=== PATIENT | male | born 1980 | race Caucasian/White ===

== ENCOUNTER 2022-10-17 08:11 | Emergency (ER) | payer BC, SELFPAY ==
[2022-10-17] VITALS (11 sets, daily range): BP systolic 139–149; BP diastolic 84–86; PULSE 89–94; RESP 16–23; TEMP 36.8; O2SAT 89–99
--- NOTE | ~2022-10-17 | CT_ITS ---
EXAMINATION: CTA chest PE protocol DATE: 10/17/2022 09:51 INDICATION: Cough and shortness of breath TECHNIQUE: Computed tomography angiography (CTA) of the chest was performed with 200 mL Omnipaque-350 intravenous contrast timed to evaluate the pulmonary arteries. Coronal maximum intensity projection 3D-reconstructions were created by the technologist. The dose-length product (DLP) was 2237.73 mGy-cm . Automated exposure control and iterative reconstruction technique were employed. COMPARISON: None. FINDINGS: There is fair opacification of the pulmonary arteries. No pulmonary embolus is identified. There are patchy airspace opacities throughout the lungs, right greater than left. No pleural effusio n or pneumothorax. No pathologically enlarged thoracic lymph nodes are identified. The heart size is normal. There is mild thoracic spondylosis. IMPRESSION: 1. No pulmonary embolus identified, sensitivity limited by fair opacification of the pulmonary arteri es. 2. Multifocal pneumonia. Reviewed, dictated and finalized at location B. ING SUPERVISOR IMPRESSION: 1. No pulmonary embolus identified, sensitivity limited by fair opacification o f the pulmonary arteries. 2. Multifocal pneumonia.
--- NOTE | 2022-10-17 08:33 | ED.GENADULT ---
HPI - General Adult General Chief complaint: Upper Respiratory Infection Stated complaint: COUGHING UP BLOOD AFTER COLD S/SX Time Seen by Provider: 10/17/22 08:14 History of Present Illness HPI narrative: 42-year-old male with history of vaping and hypertension presents to the emergency department for evaluation of hemoptysis today. Patient states over the last 2 weeks he has had cough with associated exertional shortness of breath. Patient states that he has been having a productive cough for the last week or so but had not been coughing it into his mouth until today. Patient states he had a pretty significant coughing episode this morning and coughed some blood into his mouth that he spit into a tissue. Patient had a small amount of bright red blood. Patient states that this has happened multiple times since then but does seem to be lessening in amount. Patient denies any shortness of breath at rest and denies any current chest pain. Prior history of PE or DVT. Patient is not taking any blood thinners. Related Data Home Medications Medication Instructions Recorded Confirmed lisinopril 20 1 tablet PO DAILY 10/17/22 mg-hydrochlorothiazide 12.5 mg tablet Allergies Allergy/AdvReac Type Severity Reaction Status Date / Time No Known Allergies Allergy Mild Verified 10/17/22 08:34 Review of Systems Review of Systems: CONSTITUTIONAL: Denies fever, chills, or sweats. EYES: Denies visual changes, redness, or discharge. ENT: Denies rhinorrhea, congestion, sore throat, or otalgia. CARDIOVASCULAR: Denies chest pain, palpitations, or edema. RESPIRATORY: See HPI GASTROINTESTINAL: Denies abdominal pain, nausea, vomiting, or diarrhea. GENITOURINARY: Denies dysuria or hematuria. SKIN: Denies rash or itching. MUSCULOSKELETAL: Denies back pain, joint pain, or myalgia. NEUROLOGIC: Denies headache, numbness, or weakness. Exam Narrative: APPEARANCE: Well appearing, no pain, no distress, well-nourished. HEAD: normocephalic, atraumatic. EYES: PERRLA/EOMI, conjunctivae clear. NOSE: Normal no drainage THROAT: Pharynx clear, no exudate. NECK: Supple. No adenopathy, no masses. RESPIRATORY: Airway patent, respirations nonlabored. Clear to auscultation bilaterally, no rales, rhonchi, wheezing. CARDIOVASCULAR: Regular rate and rhythm without murmurs rubs or gallops. ABDOMINAL: Soft, nontender, nondistended, normal bowel sounds MUSCULOSKELETAL: Moves all extremities. Strength/ROM intact, No edema, No calf tenderness. NEURO: Alert. Cranial nerves II through XII intact. Grossly intact SKIN: Warm, dry. Normal Color Course Course Emergency Course: patient is not tachycardic or hypoxic. Patient is resting comfortably and denies any shortness of breath. Differential diagnosis for patient's symptoms does include pulmonary embolism, pneumonia, bronchitis, bronchogenic carcinoma. CTA PE study is being ordered to rule out pulm embolism. CTA showed no evidence of pulmonary nodules but did show evidence of a pneumonia. Patient was afebrile but does have a leukocytosis of 10.1. Patient was treated with Rocephin and azithromycin in the emergency department. Patient was discharged home with Augmentin and azithromycin. Patient's influenza RSV and COVID were negative. Patient was updated on the results of the work-up and educated on reasons to return to the respiratory. All question concerns were addressed. Patient was well-appearing at time of discharge. Vital Signs Vital signs: Vital Signs Pulse Rate 90 10/17/22 08:19 Pulse Oximetry 89 L 10/17/22 08:19 Temperature 98.2 F 10/17/22 08:22 Pulse Rate 91 10/17/22 12:00 Respiratory Rate 16 10/17/22 12:00 Blood Pressure 139/86 10/17/22 12:00 Pulse Oximetry 99 10/17/22 12:00 Oxygen Delivery Room Air 10/17/22 08:22 Medical Decision Making Vital Signs Vital Signs: Vital Signs Pulse Rate 90 10/17/22 08:19 Pulse Oximetry 89 L 10/17/22 08:19 Tem
[2022-10-17 09:05] LABS: Appearance Urine Clear (Clear); Basophils Absolute Auto 0.1 K/mm3 (0.0-0.1); Basophils Percent Auto 0.5 % (0.2-1.2); Bilirubin Urine Negative (Negative); Blood Urine 1+ (Negative); Color Urine Yellow (Yellow); Eosinophils Absolute Auto 0.2 K/mm3 (0-0.3); Eosinophils Percent Auto 1.8 % (0-4.4); Glucose Urine UA Negative (Negative); Hematocrit 40.7 % (42.0-52.0); Hemoglobin 13.5 g/dL (14.0-18.0); Immature Granulocyte Absolute 0.05 K/mm3 (0.00-0.031); Immature Granulocyte Percent A 0.5 % (0-0.5); Ketones Urine Negative (Negative); Leukocyte Esterase Ur Negative LEU/UL (Negative); Lymphocytes Absolute Auto 1.41 K/mm3 (0.9-3.2); Lymphocytes Percent Auto 13.9 % (18.3-44.2); Mean Corpuscular HGB Conc 33.2 g/dl (32-36); Mean Corpuscular Hemoglobin 28.7 pg (26-34); Mean Corpuscular Volume 86.6 fl (80-100); Mean Platelet Volume 9.6 fl (7.4-10.4); Monocytes Absolute Auto 0.8 K/mm3 (0.1-0.6); Monocytes Percent Auto 8.1 % (2.6-8.5); Neutrophils Absolute Auto 7.6 K/mm3 (1.3-6.7); Neutrophils Percent Auto 75.2 % (45.5-73.1); Nitrate Urine Negative (Negative); Platelet Count Result 202 k/mm3 (150-375); Protein Urine Negative (Negative); Red Cell Distribution Width 12.7 % (11.5-14.5); Urobilinogen Urine 0.2 mg/dL (<2.0); White Blood Count 10.1 K/mm3 (4.5-10.0); pH Urine 5.5 (5.0-9.0)
[2022-10-17 09:10] LABS: INR 1.1; Prothrombin Time 14.2 Seconds (11.1-14.7)
[2022-10-17 09:12] LABS: Partial Thromboplastin Time 27.1 SECONDS (22.3-36.8)
[2022-10-17 09:15] LABS: Mucus Urine Rare /lpf; RBC Urine 0-2 /hpf (0-2); WBC Urine 0-3 /hpf
[2022-10-17 09:18] LABS: Alanine Aminotransferase 33 U/L (6-50); Albumin Level 4.3 g/dL (3.5-5.1); Alkaline Phosphatase 82 U/L (38-126); Anion Gap 4 mmol/L (8-16); Aspartate Amino Transferase 29 U/L (17-59); Bilirubin,Total 0.8 mg/dL (0.2-1.3); Blood Urea Nitrogen 17 mg/dL (9-20); Calcium 8.7 mg/dL (8.4-10.2); Carbon Dioxide 30 mmol/L (22-30); Chloride 102 mmol/L (98-107); Estimated CRCL calculation 199 ml/min; Estimated Glomerular Filt Rate > 60; Glucose 112 mg/dL (65-110); Potassium 4.2 mmol/L (3.4-5.0); Sodium 136 mmol/L (137-145)
[2022-10-17 09:20] LABS: Add Urine Microscopic? YES
[2022-10-17 09:36] LABS: Influenza A QL RT-PCR Negative (Negative); Influenza B QL RT-PCR Negative (Negative); RSV RNA, RT-PCR Negative (Negative); SARS-CoV-2 RNA PCR Negative
== END 2022-10-17 12:38 | disposition home or self-care (01) ==
PROVIDERS: Emergency Provider Emergency Medicine; PCP Family Medicine Sports Medicine
DX: J18.9 Pneumonia, unspecified organism (principal); R04.2 Hemoptysis; Z20.822 Contact with and (suspected) exposure to COVID-19; I10 Essential (primary) hypertension; F17.290 Nicotine dependence, other tobacco product, uncomplicated
CPT/HCPCS: 36415; 71275; 80053; 81001; 85025; 85610; 85730; 87637; 96365; 96367; 99284; J0456; J0696; Q9967

== ENCOUNTER 2024-05-13 08:58 | Emergency (ER) | payer OTHER, SELFPAY ==
--- NOTE | ~2024-05-13 | XR_ITS ---
EXAMINATION: XR chest 2V DATE: 05/13/2024 09:36 INDICATION: Hemoptysis. Cough. TECHNIQUE: Frontal and lateral views of the chest were obtained on 3 radiographs. COMPARISON: Chest 2 views 06/10/2009, chest CT 10/17/2022 FINDINGS: There are airspace opacities in all right lung zones, likely in the right upper lobe and ri ght middle lobe. No pleural effusion or pneumothorax. The heart size is normal. IMPRESSION: 1. Airspace opacities in right upper lobe and right middle lobe, consistent with pneumonia. Reviewed, dictated and finalized at location A. IMPRESSION: 1. Airspace opacities in right upper lobe and right middle lobe, consistent wit h pneumonia.
[2024-05-13 09:08] VITALS: BP 143/68; PULSE 74; RESP 19; TEMP 36.8; O2SAT 92
--- NOTE | 2024-05-13 09:11 | ED.URI ---
HPI - URI/Sore Throat General Chief Complaint: Upper Respiratory Infection Stated Complaint: SOB/Coughing Blood Time Seen by Provider: 05/13/24 09:23 Source: patient and RN notes reviewed Mode of arrival: ambulatory Limitations: no limitations History of Present Illness HPI Narrative: 43-year-old male presents with concern for cough, hemoptysis. Reports he has had a cough for several days and has had 3 incidence of hemoptysis. Reports he has a history of hemoptysis with pneumonia. He had pneumonia last year and had frequent hemoptysis with that. He denies any other history of problems with his sinuses. He reports fever and chills last night. He denies sore throat. Reports mild nasal congestion. He has been taking DayQuil MD elicited complaint: cough and sore throat Related Data Home Medications Medication Instructions Recorded Confirmed lisinopril 20 1 tablet PO DAILY 10/17/22 05/13/24 mg-hydrochlorothiazide 12.5 mg tablet Allergies Allergy/AdvReac Type Severity Reaction Status Date / Time No Known Allergies Allergy Mild Verified 05/13/24 09:00 Review of Systems Review of Systems: CONSTITUTIONAL: Denies malaise, sweats. Reports low-grade fever and chills EYES: Denies visual changes, redness, or discharge. ENT: Reports rhinorrhea, congestion. Denies sinus pain, otalgia and sore throat. CARDIOVASCULAR: Denies chest pain, palpitations, or edema. RESPIRATORY: Reports cough, dyspnea, hemoptysis. GASTROINTESTINAL: Denies abdominal pain, nausea, vomiting, diarrhea SKIN: Denies rash or itching. MUSCULOSKELETAL: Denies myalgia. NEUROLOGIC: Denies headache. All systems reviewed & are unremarkable except as noted in HPI and below PMFSH Comments At time of signature, agree with nursing past medical, surgical, social and family history. There is no relevant family history pertinent to the presenting complaint Exam Narrative: GENERAL: Well-appearing, well-nourished, and in no acute distress. HEAD: Normocephalic EYES: PERRLA, conjunctivae clear ENT: Nares clear. Mucous membranes moist. TM pearly robles with sharp light reflex bilaterally; no tragal tenderness. Oropharynx not erythematous without lesions. Tonsils not enlarged and without exudate, no drooling, no hoarseness, no trismus, uvula midline. NECK: Supple. No lymphadenopathy CHEST: Clear to auscultation, breath sounds equal. No wheezing, rhonchi, rales, or stridor. No respiratory distress, speaks in full sentences. HEART: Regular rate and rhythm. No murmur heard. SKIN: Warm, dry, no rash. NEURO: Alert and oriented x3. PSYCH: Normal mood and affect Course Course Emergency Course: Patient is aware of diagnosis, understands and agrees to treatment plan. Anticipatory guidance given. Patient agrees to follow-up as directed and is aware of reasons to seek care at the emergency department. Portions of this record may have been created with voice recognition software Level of Care: Express Care Visit Vital Signs Vital signs: Vital Signs Temperature 98.2 F 05/13/24 09:08 Pulse Rate 74 05/13/24 09:08 Respiratory Rate 19 05/13/24 09:08 Blood Pressure 143/68 H 05/13/24 09:08 Pulse Oximetry 92 05/13/24 09:08 Oxygen Delivery Room Air 05/13/24 09:08 Temperature 98.2 F 05/13/24 09:08 Pulse Rate 74 05/13/24 09:08 Respiratory Rate 19 05/13/24 09:08 Blood Pressure 143/68 H 05/13/24 09:08 Pulse Oximetry 92 05/13/24 09:08 Oxygen Delivery Room Air 05/13/24 09:08 Reviewed. MDM - URI/Sore Throat MDM Narrative Medical decision making narrative: Differential diagnosis considered: Suero virus, strep pharyngitis, allergic rhinitis, upper respiratory tract infection, sinusitis, rhinosinusitis, nasopharyngitis. viral pharyngitis, otitis media, otitis externa, pneumonia, bronchitis, viral cough syndrome, viral syndrome, and influenza. Exam findings show no acute concerns or changes; patient is non-toxic appearing and is in
[2024-05-13 10:00] VITALS: PULSE 76; RESP 20; O2SAT 95
== END 2024-05-13 10:00 | disposition home or self-care (01) ==
PROVIDERS: Emergency Provider Nurse Practitioner; PCP Family Medicine Sports Medicine
DX: J18.9 Pneumonia, unspecified organism (principal); I10 Essential (primary) hypertension
CPT/HCPCS: 71046; 99213; G0463

== ENCOUNTER 2024-05-14 02:59 | Inpatient (IN) | payer OTHER, SELFPAY ==
[2024-05-14] VITALS (18 sets, daily range): BP systolic 125–174; BP diastolic 61–83; PULSE 78–104; RESP 16–24; TEMP 36.6–38.2; O2SAT 88–99; BMI 47.5
--- NOTE | ~2024-05-14 | XR_ITS ---
Clinical Indication: Shortness of breath, cough PA and lateral views of the chest: Comparison: 05/13/2024 Findings: There is extensive bilateral hazy pulmonary airspace disease/consolidation, right lung wors e than left. No pleural effusions. Cardiomediastinal silhouette is within normal limits. Bones and s oft tissues are unremarkable. Impression: Extensive hazy bibasilar airspace disease/consolidation, right worse than left. Correlate for pulmona ry edema versus bilateral pneumonia. Reviewed, dictated and finalized at location M. Impression: Extensive hazy bibasilar airspace disease/consolidation, right worse than left. Correlate for pulmonary edema versus bilateral pneumonia.
--- NOTE | ~2024-05-14 | CT_ITS ---
EXAMINATION: CTA chest PE protocol DATE: 05/15/2024 09:34 INDICATION: Pneumonia presenting with worsening shortness of breath and hemoptysis. TECHNIQUE: Computed tomography (CT) pulmonary angiogram of the chest was performed with 100 mL Omnipa que-350 intravenous contrast. Additional 3D reconstructions utilizing coronal maximum intensity proje ction (MIP) were performed. Automated exposure control and iterative reconstruction technique were em ployed. The dose-length product was 2245.10 mGy-cm. COMPARISON: None FINDINGS: There is suboptimal contrast opacification of the pulmonary arteries which decreases sensitivity in t he smaller segmental and subsegmental pulmonary arteries. No evident pulmonary embolism. There are ex tensive groundglass opacities and patchy more dense consolidation throughout both lungs with bat wing configuration relatively sparing the periphery of the lungs which could represent moderate pulmonary edema or pneumonia. Calcified right lower lobe nodules consistent with old granulomatous disease. No pleural effusion. Heart size is normal. No pericardial effusion. Thoracic aorta is normal in caliber with no dissection. No pathologically enlarged thoracic lymphadenopathy. Moderate thoracic spondylos is. IMPRESSION: 1. No definitive pulmonary embolism. Sensitivity decreased in the smaller segmental and subsegmental pulmonary arteries due to suboptimal contrast opacification. 2. Extensive groundglass opacities and more dense consolidation throughout both lungs which could rep resent moderate pulmonary edema or pneumonia. Reviewed, dictated and finalized at location B. IMPRESSION: 1. No definitive pulmonary embolism. Sensitivity decreased in the smaller segme ntal and subsegmental pulmonary arteries due to suboptimal contrast opacificati on. 2. Extensive groundglass opacities and more dense consolidation throughout both lungs which could represent moderate pulmonary edema or pneumonia.
--- NOTE | ~2024-05-14 | XR_ITS ---
Portable chest x-ray Comparison: 05/16/2024 Clinical History: Decreased hemoglobin following bronchoscopy Findings: There is diffuse groundglass pulmonary disease. No pneumothorax evident. Cardiomediastina l silhouette is stable. Bones and soft tissues are unremarkable. Impression: Diffuse ground less pulmonary disease, nonspecific. Reviewed, dictated and finalized at location . Impression: Diffuse ground less pulmonary disease, nonspecific.
--- NOTE | ~2024-05-14 | XR_ITS ---
EXAMINATION: XR chest 1V portable DATE: 05/16/2024 13:06 INDICATION: Pneumonia. Post bronchoscopy. TECHNIQUE: A single frontal view of the chest was obtained on 2 radiographs. COMPARISON: Chest single view at 7:52 AM, chest CT 05/15/2024 FINDINGS: There are airspace opacities in all lung zones bilaterally. No pleural effusion or pneumoth orax. The heart size is normal. IMPRESSION: 1. Stable diffuse lung disease, most likely atypical pneumonia. Reviewed, dictated and finalized at location A.
--- NOTE | ~2024-05-14 | XR_ITS ---
Portable chest x-ray Comparison: 05/14/2024 Clinical History: Pneumonia Findings: There is diffuse hazy pulmonary disease, similar to prior exam. No pleural effusions. Car diomediastinal silhouette is stable. Bones and soft tissues are unremarkable. Impression: Stable diffuse hazy pulmonary disease. Correlate for extensive pneumonia versus pulmonary edema. Reviewed, dictated and finalized at [facility]. Impression: Stable diffuse hazy pulmonary disease. Correlate for extensive pneumonia versus pulmonary edema.
--- NOTE | ~2024-05-14 | XR_ITS ---
EXAMINATION: XR chest 1V portable DATE: 05/18/2024 08:43 INDICATION: Pneumonia TECHNIQUE: frontal view of the chest was obtained. COMPARISON: Chest radiograph dated 05/17/2024 FINDINGS: Persistent patchy ground glass opacities in the left mid and lower lung zone with some improvement in the patchy groundglass opacities in the right lung. No pleural effusion or pneumothorax. The cardiom ediastinal silhouette is normal. IMPRESSION: 1. Persistent patchy groundglass opacities in the left lower lobe with decrease in the opacity in the right lung consistent with improving pneumonia or pulmonary edema. Reviewed, dictated and finalized at location A. IMPRESSION: 1. Persistent patchy groundglass opacities in the left lower lobe with decrease in the opacity in the right lung consistent with improving pneumonia or pulmon nancy edema.
--- NOTE | ~2024-05-14 | XR_ITS ---
Portable chest x-ray Comparison: 05/18/2024 Clinical History: Pneumonia Findings: There is bibasilar mild groundglass pulmonary disease, similar to prior exam. Cardiomedia stinal silhouette is stable. Bones and soft tissues are unremarkable. Impression: Stable mild bilateral ground glass pulmonary disease, with basilar prominence. Correlate for mild pul monary edema or atypical infection. Reviewed, dictated and finalized at [facility]. Impression: Stable mild bilateral ground glass pulmonary disease, with basilar prominence. Correlate for mild pulmonary edema or atypical infection.
--- NOTE | 2024-05-14 03:07 | ECG_ITS ---
Test Date: 2024-05-14 03:19:59 Measurements Intervals [place] Rate: 87 P: 19 SC: 181 QRS: -25 QRSD: 105 T: 76 QT: 354 QTc: 427 Interpretive Statements SINUS RHYTHM BORDERLINE ST-T WAVE ABNORMALITY- HIGH LATERAL LEADS BASELINE ARTIFACT- I, II, III, AVR, AVL, AVF, V2 BORDERLINE ECG No previous ECG available for comparison Electronically Signed On 05-14-2024 06:28:10 CDT by Bobby Morton D.O.
[2024-05-14 03:22] LABS: Basophils Percent Auto 0.4 % (0.2-1.2); Eosinophils Absolute Auto 0.2 K/mm3 (0-0.3); Eosinophils Percent Auto 1.6 % (0-4.4); Hematocrit 33.9 % (42.0-52.0); Hemoglobin 11.2 g/dL (14.0-18.0); Immature Granulocyte Absolute 0.02 K/mm3 (0.00-0.031); Immature Granulocyte Percent A 0.2 % (0-0.5); Lymphocytes Absolute Auto 2.57 K/mm3 (0.9-3.2); Lymphocytes Percent Auto 26.2 % (18.3-44.2); Mean Corpuscular Hemoglobin 28.9 pg (26-34); Mean Corpuscular Volume 87.6 fl (80-100); Mean Platelet Volume 9.3 fl (7.4-10.4); Monocytes Absolute Auto 0.8 K/mm3 (0.1-0.6); Monocytes Percent Auto 8.2 % (2.6-8.5); Neutrophils Absolute Auto 6.2 K/mm3 (1.3-6.7); Neutrophils Percent Auto 63.4 % (45.5-73.1); Platelet Count Result 215 k/mm3 (150-375); Red Blood Count 3.87 M/mm3 (4.6-6.20); Red Cell Distribution Width 12.9 % (11.5-14.5); White Blood Count 9.8 K/mm3 (4.5-10.0)
--- NOTE | 2024-05-14 03:24 | ED.SOB ---
HPI - SOB/Dyspnea General Chief Complaint: Shortness of Breath/Dyspnea Stated Complaint: coughing up blood Time Seen by Provider: 05/14/24 03:08 History of Present Illness HPI Narrative: This is a 43-year-old male recently diagnosed with community-acquired pneumonia yesterday. He has been dealing with 3 days of difficulty breathing, cough productive of clear and admixed with blood tinged sputum. Endorses some chest tightness sensation but no nausea, vomiting, diaphoresis. Has a history of a pneumonia that not require any hospitalization couple years prior. No recent injuries or travel. No leg swelling, recent procedures or other DVT/PE risk factors. Was otherwise in his normal state of health. He presents today and was noted to be hypoxic in triage. He was requiring oxygen supplementation. He does wear a CPAP at home for ULISES. Related Data Home Medications Medication Instructions Recorded Confirmed lisinopril 20 1 tablet PO DAILY 10/17/22 05/13/24 mg-hydrochlorothiazide 12.5 mg tablet Allergies Allergy/AdvReac Type Severity Reaction Status Date / Time No Known Allergies Allergy Mild Verified 05/13/24 09:00 Review of Systems Review of Systems: As reviewed above in HPI Exam Narrative: GENERAL: [Well-appearing, well-nourished, and in no acute distress.] HEAD: [Normocephalic, atraumatic.] EYES: [PERRLA and EOMI.] ENT: Nares clear, no rhinorrhea or epistaxis. Mucous membranes moist. NECK: Supple. CHEST: Very coarse breath sounds on the right base and apex, no respiratory distress, left lung sounds clear. HEART: [Regular rate and rhythm]. No murmur heard. [Normal peripheral pulses.] ABDOMEN: [Soft, nondistended], [nontender], [No rigidity or guarding] EXTREMITIES: Normal range of motion. [No edema.] SKIN: Warm, dry, no rash. NEURO: [No focal deficits]. Alert and oriented [x3.] PSYCH: [Normal mood and affect.] Course Vital Signs Vital signs: Vital Signs Temperature 36.9 C 05/14/24 03:04 Pulse Rate 96 05/14/24 03:04 Respiratory Rate 22 H 05/14/24 03:04 Blood Pressure 174/77 H 05/14/24 03:04 Pulse Oximetry 88 L 05/14/24 03:04 Oxygen Delivery Room Air 05/14/24 03:04 Temperature 36.6 C 05/14/24 03:24 Pulse Rate 90 05/14/24 03:24 Respiratory Rate 16 05/14/24 03:24 Blood Pressure 148/83 H 05/14/24 03:24 Pulse Oximetry 96 05/14/24 03:54 Oxygen Delivery Nasal Cannula 05/14/24 03:54 Oxygen Flow Rate 3 05/14/24 03:54 MDM - SOB/Dyspnea MDM Narrative Medical decision making narrative: 43-year-old male presenting for worsening pneumonia. He was diagnosed at urgent care yesterday after a chest x-ray revealed multifocal pneumonia more so on the right side. He was discharged home with Augmentin and azithromycin only took the 1st dose. He woke up today with a choking coughing sensation in the middle night and he was found to be hypoxic prompting him to be evaluated today in the ER. He is not in respiratory distress and breathing comfortably with full conversations. He does have very coarse breath sounds on the right side consistent with his x-ray which I reviewed from yesterday which shows right multilobar pneumonia. He was saturating 99% saturation with oxygen supplementation 2 L nasal cannula. Blood pressure slightly elevated but not emergent. Non tachycardic. Repeat chest x-ray repeat T obtained to make sure there is no worsening pneumonia, new process such as pneumothorax or effusion. Cardiac workup was ordered, he was started on community-acquired IV antibiotics including Rocephin and doxycycline. Patient was re-evaluated had improvement in his symptoms, but was still requiring oxygen. He remained with nonlabored respirations. Workup reveals no significant leukocytosis or anemia. Electrolytes within normal limits, normal renal and hepatic function, as well as glucose. Chest x-ray on my interpretation shows right-sided consolidations consistent with pne
[2024-05-14] MEDS: cefTRIAXone 2 GM/NS 100 ML 2 GM/100 ML BAG IVPB (03:27)
[2024-05-14 03:34] LABS: Alanine Aminotransferase 28 U/L (6-50); Albumin Level 4.1 g/dL (3.5-5.1); Alkaline Phosphatase 79 U/L (38-126); Anion Gap 9 mmol/L (4-12); Aspartate Amino Transferase 29 U/L (17-59); Bilirubin,Total 1.2 mg/dL (0.2-1.3); Blood Urea Nitrogen 13 mg/dL (9-20); Calcium 8.7 mg/dL (8.4-10.2); Carbon Dioxide 28 mmol/L (22-30); Chloride 102 mmol/L (98-107); Estimated CRCL calculation 176 ml/min; Estimated Glomerular Filt Rate > 60; Glucose 107 mg/dL (65-110); Potassium 3.5 mmol/L (3.4-5.0); Sodium 139 mmol/L (137-145)
[2024-05-14] MEDS: DOXYCYCLINE 100 MG/NS 100 ML 100 MG/100 ML BAG IVPB (04:01)
--- NOTE | 2024-05-14 06:07 | ADMGEN ---
This patient, Bari Reed, was admitted to Medical Room 250-01. Patient/family oriented to hospital policies and general routines including ID bracelet, bed and alarms, visiting hours, pain management, procedures, bathroom and other care routines, personal items, smoking policy, room service/diet, and visiting hours. Information on how to activate the Rapid Response Team has been discussed. Patient/Family are encouraged to report perceived risks to care and to ask questions if they do not understand what they are told or what they should do.
--- NOTE | 2024-05-14 08:45 | PM.IMHP ---
H&P: HPI History of Present Illness Date/Time: 05/14/24 08:45 Chief Complaint: Patient is a 43 year old male admitted for pneumonia. Patient diagnosed with community-acquired pneumonia yesterday at urgent care and given Augmentin and Azithromycin. Patient reports taking one dose of each before coming to the hospital. He has been dealing with 3 days of difficulty breathing, cough productive of clear and admixed with blood tinged sputum. Denies chest pain, vomiting, or diaphoresis. Reports nausea and palpitations with coughing at times. Has a history of a pneumonia that did not require any hospitalization couple years prior. No recent injuries or travel. No recent procedures or other DVT/PE risk factors. Was otherwise in his normal state of health. Patient reports that his sats on his watch showed the mid 80's prior to coming to the hospital. He presents today and was noted to be hypoxic in triage. He was requiring oxygen supplementation. He does wear a CPAP at home for ULISES. Patient is a former is a cigarette smoker, patient currently vapes nicotine 3 mg. White blood cells 9.8, H&H 11.2 and 33.9, CMP within normal limits Chest X-ray showed:Extensive hazy bibasilar airspace disease/consolidation, right worse than left. Correlate for pulmonary edema versus bilateral pneumonia. Review of Systems Constitutional: Constitutional: Denies difficulty sleeping and Reports fatigue ENT: Denies nasal congestion and Denies nasal discharge Cardiovascular: Cardiovascular: Denies chest pain and Denies palpitations Respiratory: Respiratory: Reports hemoptysis and Reports dyspnea on exertion Gastrointestinal: Gastrointestinal: Denies constipation, Denies diarrhea, Reports nausea and Denies vomiting Musculoskeletal: Musculoskeletal: Reports no additional musculoskeletal complaints Integumentary/Breasts: Skin/Breast: Denies rash Neurologic: Denies numbness [facility], [facility] Social History Social History Smoking status: Current every day smoker Tobacco type: e-cigarettes/vaping Alcohol intake: never Substance use: never Substance use type: does not use Do You Feel Safe in your Home?: Yes Lack of Transportation: No Lack of Food: Never True Current Housing: I Have Housing Concerned About Future Housing: No Difficulty Paying Gas/Electric Bills: No Difficulty Paying for Meds: No Currently Unemployed: No Education: High School Diploma/GED Difficulty w/ Childcare or Family Care: No Spiritual care concerns: No Meds Home Medications and Allergies Home Medications Medication Instructions Recorded Confirmed Type lisinopril 20 1 tablet PO DAILY 10/17/22 05/14/24 History mg-hydrochlorothiazide 12.5 mg tablet amoxicillin 875 mg-potassium 1 tablet PO Q12H 10 days #20 tabs 05/13/24 05/14/24 Rx clavulanate 125 mg tablet azithromycin 250 mg tablet See Rx Instructions PO .COMPLEX #6 05/13/24 05/14/24 Rx (Zithromax Z-Jasbir) tabs amlodipine 10 mg tablet 10 mg PO DAILY 05/14/24 05/14/24 History aspirin 81 mg tablet 81 mg PO DAILY 05/14/24 05/14/24 History Allergies Allergy/AdvReac Type Severity Reaction Status Date / Time No Known Allergies Allergy Mild Verified 05/14/24 05:42 Vital Signs Vital Signs - 24 hr 05/14/24 03:04 05/14/24 03:23 05/14/24 03:24 Temperature 98.4 F Pulse Rate 96 92 Respiratory Rate 22 H Blood Pressure 174/77 H Pulse Oximetry 88 L 88 L Oxygen Delivery Room Air Room Air Oxygen Flow Rate 05/14/24 03:24 05/14/24 03:24 05/14/24 03:29 Temperature 98 F Pulse Rate 90 Respiratory Rate 16 Blood Pressure 148/83 H Pulse Oximetry 98 99 95 Oxygen Delivery Nasal Cannula Nasal Cannula Oxygen Flow Rate 2 2 05/14/24 03:54 05/14/24 05:17 05/14/24 06:00 Temperature 98.6 F 100.8 F H Pulse Rate 78 104 H Respiratory Rate 24 H 22 H Blood Pressure 152/78 H 149/66 H Pulse Oximetry 96 98
[2024-05-14] MEDS: lisinopriL 20 MG TABLET PO (09:00)
[2024-05-14] MEDS: guaiFENesin 600 MG/DEXTROMETHORPHAN 30 MG SR TAB 12 HR 1 TAB PO ×2 (09:00→20:10)
[2024-05-14] MEDS: amLODIPine BESYLATE 10 MG TABLET PO (09:00)
[2024-05-14] MEDS: hydroCHLOROthiazide 12.5 MG CAPSULE PO (09:01)
[2024-05-14 10:02] LABS: NT Pro B Type Natriuretic Pept 32 pg/mL (19.9-100)
[2024-05-14 11:31] LABS: Procalcitonin 0.1 ng/mL
[2024-05-14] MEDS: IPRATROPIUM 0.5 MG/ALBUTEROL SULFATE 2.5 MG AMPUL.NEB 3 ML INHALATION ×2 (14:02→20:19)
[2024-05-15] VITALS (25 sets, daily range): BP systolic 126–135; BP diastolic 61–71; PULSE 72–99; RESP 16–20; TEMP 36.4–37.2; O2SAT 90–97
[2024-05-15] MEDS: IPRATROPIUM 0.5 MG/ALBUTEROL SULFATE 2.5 MG AMPUL.NEB 3 ML INHALATION ×3 (02:14→13:40)
[2024-05-15] MEDS: AZITHROMYCIN IV 250 MG in SODIUM CHLORIDE 0.9% IV 250 ML IVPB (04:31)
[2024-05-15 05:17] LABS: Basophils Percent Auto 0.3 % (0.2-1.2); Eosinophils Absolute Auto 0.1 K/mm3 (0-0.3); Hematocrit 32.7 % (42.0-52.0); Hemoglobin 10.2 g/dL (14.0-18.0); Immature Granulocyte Absolute 0.05 K/mm3 (0.00-0.031); Immature Granulocyte Percent A 0.4 % (0-0.5); Lymphocytes Absolute Auto 1.94 K/mm3 (0.9-3.2); Mean Corpuscular HGB Conc 31.2 g/dl (32-36); Mean Corpuscular Hemoglobin 28.2 pg (26-34); Mean Corpuscular Volume 90.3 fl (80-100); Mean Platelet Volume 9.9 fl (7.4-10.4); Monocytes Absolute Auto 0.9 K/mm3 (0.1-0.6); Monocytes Percent Auto 7.5 % (2.6-8.5); Neutrophils Absolute Auto 9.1 K/mm3 (1.3-6.7); Neutrophils Percent Auto 74.8 % (45.5-73.1); Platelet Count Result 219 k/mm3 (150-375); Red Blood Count 3.62 M/mm3 (4.6-6.20); Red Cell Distribution Width 13.1 % (11.5-14.5); White Blood Count 12.1 K/mm3 (4.5-10.0)
[2024-05-15 05:33] LABS: Alanine Aminotransferase 26 U/L (6-50); Albumin Level 4.1 g/dL (3.5-5.1); Alkaline Phosphatase 71 U/L (38-126); Anion Gap 8 mmol/L (4-12); Aspartate Amino Transferase 31 U/L (17-59); Bilirubin,Total 1.6 mg/dL (0.2-1.3); Blood Urea Nitrogen 15 mg/dL (9-20); Calcium 8.5 mg/dL (8.4-10.2); Carbon Dioxide 29 mmol/L (22-30); Chloride 100 mmol/L (98-107); Estimated CRCL calculation 199 ml/min; Estimated Glomerular Filt Rate > 60; Glucose 114 mg/dL (65-110); Potassium 3.6 mmol/L (3.4-5.0); Sodium 137 mmol/L (137-145)
[2024-05-15] MEDS: lisinopriL 20 MG TABLET PO (08:20)
[2024-05-15] MEDS: hydroCHLOROthiazide 12.5 MG CAPSULE PO (08:20)
[2024-05-15] MEDS: amLODIPine BESYLATE 10 MG TABLET PO (08:20)
[2024-05-15] MEDS: guaiFENesin 600 MG/DEXTROMETHORPHAN 30 MG SR TAB 12 HR 1 TAB PO ×2 (08:20→19:52)
[2024-05-15 09:43] LABS: Influenza A QL RT-PCR Negative (Negative); Influenza B QL RT-PCR Negative (Negative); RSV RNA, RT-PCR Negative (Negative); SARS-CoV-2 RNA PCR Negative (Negative)
--- NOTE | 2024-05-15 11:10 | PM.IMPN ---
Progress Note: A&P Assessment and Plan (1) Community acquired pneumonia: Code(s): J18.9 - Pneumonia, unspecified organism Status: Acute Assessment and Plan: WBC 12.1 Temp 99.0, Hemoptysis- dark red. IV Cetriaxone 1 gm daily and Azithromycin 250 mg IVPB q day for 4 days. Duonebs q 6 hours. Guaifenesin/ Dextromethorphan 1 tab q 12 for 7 days. Encourage hydration. Legionella pneumophila Ag urine, pneumococcal antigen urine,Sputum Culture and BC x2 pending. Monitor labs. d. dimer negative. CTA pulmonary completed today: IMPRESSION: 1. No definitive pulmonary embolism. Sensitivity decreased in the smaller segmental and subsegmental pulmonary arteries due to suboptimal contrast opacification. 2. Extensive groundglass opacities and more dense consolidation throughout both lungs which could represent moderate pulmonary edema or pneumonia. Pulmonology consult. Incentive spirometer. Patient requesting to be transferred to [facility]. 13:10 called and spoke to Cheryl in patient placement at [facility]. Facesheet faxed over by compliance engineer products on the floor. Received call back from Dr. Zelaya unable to take patient due to lateral transfer. [employer] aware, will transfer patient to IMU. IMU and patient aware. Patient does not want to transfer anywhere but [facility]. Patient at this point would rather stay here, transfer to IMU, and have bronchoscopy tomorrow. Patient will discuss with if they would like to try to transfer anywhere else. (2) Hypoxic respiratory failure: Code(s): J96.91 - Respiratory failure, unspecified with hypoxia Status: Acute Assessment and Plan: 02 @5 liters nasal cannula. d dimer negative. CTA pulmonary completed today: IMPRESSION: 1. No definitive pulmonary embolism. Sensitivity decreased in the smaller segmental and subsegmental pulmonary arteries due to suboptimal contrast opacification. 2. Extensive groundglass opacities and more dense consolidation throughout both lungs which could represent moderate pulmonary edema or pneumonia. Pulmonology consult. (3) Hypertension: Code(s): I10 - Essential (primary) hypertension Status: Chronic Assessment and Plan: Continue home Amlodipine 10 mg PO daily and lisinopril 20 mg combination with 12.5 mg hydrochlorothiazide. Monitor vital signs. Subjective Date/time seen: 05/15/24 11:10 Interval history: Patient is a 43 year old male admitted for pneumonia. Patient diagnosed with community-acquired pneumonia yesterday at urgent care and given Augmentin and Azithromycin. Patient reports taking one dose of each before coming to the hospital. He has been dealing with 3 days of difficulty breathing, cough productive of clear and admixed with blood tinged sputum. Denies chest pain, vomiting, or diaphoresis. Reports nausea and palpitations with coughing at times. Has a history of a pneumonia that did not require any hospitalization couple years prior. No recent injuries or travel. No recent procedures or other DVT/PE risk factors. Was otherwise in his normal state of health. Patient reports that his sats on his watch showed the mid 80's prior to coming to the hospital. He presents today and was noted to be hypoxic in triage. He was requiring oxygen supplementation. He does wear a CPAP at home for ULISES. Patient is a former is a cigarette smoker, patient currently vapes nicotine 3 mg. Patient with worsening shortness of breath this morning requiring 02@5 liters nasal cannula. Sa02 improved to 94% on 5 liters after breathing treatment. Coughing up dark red blood. White blood cells 12.1, H&H 10.2 and 32.7, Total bili 1.6. D. dimer negative. Chest X-ray showed:Extensive hazy bibasilar airspace disease/consolidation, right worse than left. Correlate for pulmonary edema versus bilateral pneumonia. Review of Systems Constitutional: Constitutional: Denies difficulty sleeping and Reports fatigue ENT: Denies nasal congestion and Denies nasal dis
[2024-05-15 12:23] LABS: INR 1.2; Partial Thromboplastin Time 27.7 Seconds (22.3-36.8); Prothrombin Time 15.2 Seconds (11.1-14.7)
[2024-05-15 12:43] LABS: CRP 6.2 mg/dL (<1.0)
--- NOTE | 2024-05-15 12:44 | PM.CNPUL ---
Assessment and Plan Assessment and plan (1) Hypoxic respiratory failure: Code(s): J96.91 - Respiratory failure, unspecified with hypoxia Status: Acute Assessment and Plan: This 43-year-old man with a history of obesity presented with a few days' history of cough associated with hemoptysis. Diagnostic studies have shown extensive ground-glass opacities with consolidations bilaterally, and a decrease in his hemoglobin from 13.5 about 7 months ago down to 10.2, with no leukocytosis on presentation. He had no pulmonary embolism, and his presentation, in conjunction with other diagnostic studies, is not consistent with congestive heart failure. Viral pneumonia with an ARDS picture is a possibility. All PCR tests for common viruses are negative. Given the drop in hemoglobin and the characteristic CT findings, alveolar hemorrhage is a possibility. Although rare, alveolar hemorrhage related to vaping is another less likely possibility. Plan: Proceed with further testing for underlying viral or bacterial pneumonia. Test for underlying alveolar hemorrhage related to autoimmune diseases. Patient will be scheduled for bronchoscopy in the morning to exclude alveolar hemorrhage. Bronchoscopy cannot be done today as the patient just had lunch. (2) Community acquired pneumonia: Code(s): J18.9 - Pneumonia, unspecified organism Status: Acute (3) Hypertension: Code(s): I10 - Essential (primary) hypertension Status: Chronic (4) Hemoptysis: Code(s): R04.2 - Hemoptysis Status: Acute History of Present Illness History of Present Illness Consult date: 05/15/24 Chief complaint: Community-Acquired pneumonia Narrative: This 43-year-old man was seen in consultation for hemoptysis. The patient has a history of obesity and obstructive sleep apnea, managed with CPAP therapy. He was in his usual state of health until approximately four days ago when he started coughing. On the same day, he experienced two episodes of coughing up blood. According to the patient, the blood was not mixed with sputum and did not follow episodes of just coughing up phlegm. On the day he had the two episodes of hemoptysis, he had a fever of approximately 100.8?F and an episode of chills. He was evaluated at a local [facility], where he was diagnosed with pneumonia and started on Augmentin and Zithromax. The patient took just one dose of antibiotics. The following day, he had hemoptysis and shortness of breath. He was evaluated in the emergency room at [facility], where he was found to have extensive pneumonia. The patient has had no more hemoptysis since last night. He still has congestion but cannot cough up any blood at this point. He has been treated with antibiotics for community-acquired pneumonia. A chest X-ray showed bilateral infiltrates, and a subsequent chest CT showed extensive ground-glass opacities and more dense consolidation throughout both lungs. He had no elevated BNP and no evidence of pleural effusions on chest CT. He currently complains of shortness of breath when ambulating in the room. Currently, he has no fever, chills, chest pain, or wheezing. No history of recent traveling and no history of sick contacts at home. The patient has a history of lower extremity edema. His past medical history is also significant for a previous episode of pneumonia in October 2022. Review of a chest CT done then showed bilateral patchy infiltrates. Reportedly, the patient was treated with antibiotics with full recovery. His past medical history is also significant for hypertension and sleep apnea. His last sleep study was approximately 4-5 years ago, and he has been on auto CPAP using a range of pressures from 6-18 cm H2O. The patient used to smoke two packs per day for many years. Currently, he is vaping, using 100 mL bottles of 3% nicotine, which last him for approximately 9-10 days. Additionally, he reports exposure to domestic bir
[2024-05-15 13:52] LABS: MRSA (PCR) NOT DETECTED (NOT DETECTE)
[2024-05-15 14:27] LABS: Add Urine Microscopic? NO; Appearance Urine Clear (Clear); Bilirubin Urine Negative (Negative); Blood Urine Negative (Negative); Color Urine Yellow (Yellow); Glucose Urine UA Negative (Negative); Ketones Urine Negative (Negative); Leukocyte Esterase Ur Negative LEU/UL (Negative); Nitrate Urine Negative (Negative); Protein Urine Negative (Negative); Specific Grav Ur > 1.045 (1.001-1.035); pH Urine 5.5 (5.0-9.0)
--- NOTE | 2024-05-15 15:21 | PC.NURSE ---
This patient, Bari Reed, was transferred to IMU on 05/15/24 at 1521. Personal belongings sent with patient. Report given to SETH Arndt. Appropriate documentation sent with patient.
--- NOTE | 2024-05-15 15:37 | PC.NURSE ---
Received pt from [address] [place] [address] accompanied by staff and @ 1521; pt / oriented to room and routines of floor; O2 on 8 l/high flow nasal cannula - spo2 @ 92%, monitor on SR 90; vss- no c/o pain -denies SOB at rest
[2024-05-15] MEDS: methylPREDNISolone SOD SUCC 125 MG VIAL 80 MG IV PUSH (16:30)
[2024-05-15 18:07] LABS: HIV 1/2 Ab P24 Ag Result Negative (Negative)
[2024-05-15] MEDS: NICOTINE (*PBKC) 14 MG PATCH 1 PATCH TRANSDERM (21:28)
[2024-05-16] VITALS (40 sets, daily range): BP systolic 108–146; BP diastolic 42–104; PULSE 46–111; RESP 15–33; TEMP 36.5–37.4; O2SAT 88–100
--- NOTE | 2024-05-16 | ECHO_ITS ---
Patient Info Name: Bari Reed Age: 43 years : 1980 Gender: Male Ht: 73 in Wt: 380 lbs BSA: 3.07 m2 HR: 93 bpm BP: 118 / 48 mmHg Heart Rhythm: Sinus Rhythm Technical Quality: Fair Exam Date: 05/16/2024 3:56 PM Exam Location: Echo Lab Patient Status: Inpatient Admit Date: 05/14/2024 Staff Ordering Physician: John Vicente MD Attending Provider: Alessandro Croft MD Exam Type: CA echo doppler color flow Study Info Indications J96.90 - Respiratory failure, unspecified, unspecified whether with hypoxia or hypercapnia Complete two-dimensional, color flow and Doppler transthoracic echocardiogram is performed. Summary 1. Complete two-dimensional, color flow and Doppler transthoracic echocardiogram is performed. 2. Unremarkable 2D/Doppler echocardiogram. Left Ventricle Left ventricular chamber dimension is normal. Left ventricular systolic function is normal, estimated at 65-70%. The left ventricular diastolic function is normal. Right Ventricle Right ventricular chamber dimension is normal. Left Atria Left atrial chamber dimension is normal. Right Atria Right atrial chamber dimension is normal. Aortic Valve The aortic valve is normal. Pulmonic Valve The pulmonic valve is not well visualized. Mitral Valve The mitral valve has normal leaflets. Tricuspid Valve The tricuspid valve leaflets are normal. Pericardium/Pleural The pericardium appears normal. Aorta The aortic root size at the sinus of Valsalva is normal. Left Ventricular Outflow Tract Name Value Normal LVOT 2D LVOT Diameter 2.4 cm LVOT Doppler LVOT Peak Velocity 153 cm/s LVOT Peak Gradient 9 mmHg LVOT Mean Gradient 5 mmHg LVOT VTI 24 cm LVOT VTI/AV VTI Ratio 0.8 LVOT Stroke Volume 108 ml LVOT CO 9.3 l/min LVOT CI 3.0 l/min/m2 Pulmonic Valve Name Value Normal PV Doppler PV Peak Velocity 134 cm/s PV Peak Gradient 7 mmHg PV Regurgitation Doppler DE Peak End Diastolic Velocity 100 cm/s Mitral Valve Name Value Normal MV Doppler MV Decel [place] 836 cm/s2 MV PHT 43 ms MV Area (PHT) 5.1 cm2 4.0-5.0 MV Diastolic Function MV E Peak Velocity 125 cm/s
[2024-05-16] MEDS: IPRATROPIUM 0.5 MG/ALBUTEROL SULFATE 2.5 MG AMPUL.NEB 3 ML INHALATION ×5 (03:19→20:35)
[2024-05-16] MEDS: AZITHROMYCIN IV 250 MG in SODIUM CHLORIDE 0.9% IV 250 ML IVPB (04:54)
[2024-05-16 05:07] LABS: Basophils Percent Auto 0.1 % (0.2-1.2); Hematocrit 32.2 % (42.0-52.0); Hemoglobin 10.4 g/dL (14.0-18.0); Immature Granulocyte Absolute 0.05 K/mm3 (0.00-0.031); Immature Granulocyte Percent A 0.4 % (0-0.5); Lymphocytes Absolute Auto 1.17 K/mm3 (0.9-3.2); Lymphocytes Percent Auto 9.6 % (18.3-44.2); Mean Corpuscular HGB Conc 32.3 g/dl (32-36); Mean Corpuscular Hemoglobin 28.8 pg (26-34); Mean Corpuscular Volume 89.2 fl (80-100); Mean Platelet Volume 9.9 fl (7.4-10.4); Monocytes Absolute Auto 0.4 K/mm3 (0.1-0.6); Monocytes Percent Auto 3.1 % (2.6-8.5); Neutrophils Absolute Auto 10.6 K/mm3 (1.3-6.7); Neutrophils Percent Auto 86.8 % (45.5-73.1); Platelet Count Result 229 k/mm3 (150-375); Red Blood Count 3.61 M/mm3 (4.6-6.20); Red Cell Distribution Width 12.9 % (11.5-14.5); White Blood Count 12.2 K/mm3 (4.5-10.0)
[2024-05-16 05:17] LABS: Alanine Aminotransferase 25 U/L (6-50); Albumin Level 4.2 g/dL (3.5-5.1); Alkaline Phosphatase 71 U/L (38-126); Anion Gap 7 mmol/L (4-12); Aspartate Amino Transferase 30 U/L (17-59); Bilirubin,Total 1.7 mg/dL (0.2-1.3); Blood Urea Nitrogen 15 mg/dL (9-20); Calcium 8.8 mg/dL (8.4-10.2); Carbon Dioxide 30 mmol/L (22-30); Chloride 99 mmol/L (98-107); Estimated CRCL calculation 229 ml/min; Estimated Glomerular Filt Rate > 60; Glucose 143 mg/dL (65-110); Potassium 4.1 mmol/L (3.4-5.0); Sodium 136 mmol/L (137-145)
[2024-05-16] MEDS: NICOTINE (*PBKC) 14 MG PATCH 1 PATCH TRANSDERM (08:30)
[2024-05-16] MEDS: guaiFENesin 600 MG/DEXTROMETHORPHAN 30 MG SR TAB 12 HR 1 TAB PO ×2 (08:31→20:36)
[2024-05-16] MEDS: amLODIPine BESYLATE 10 MG TABLET PO (08:31)
[2024-05-16] MEDS: hydroCHLOROthiazide 12.5 MG CAPSULE PO (08:31)
[2024-05-16] MEDS: lisinopriL 20 MG TABLET PO (08:31)
--- NOTE | 2024-05-16 08:58 | PM.PNPUL ---
Progress Note: A&P Assessment and Plan (1) Hemoptysis: Code(s): R04.2 - Hemoptysis Status: Acute (2) Hypoxic respiratory failure: Code(s): J96.91 - Respiratory failure, unspecified with hypoxia Status: Acute Assessment and Plan: This 43-year-old man with a history of obesity presented with a few days' history of cough associated with hemoptysis. Diagnostic studies have shown extensive ground-glass opacities with consolidations bilaterally, and a decrease in his hemoglobin from 13.5 about 7 months ago down to 10.2, with no leukocytosis on presentation. He had no pulmonary embolism, and his presentation, in conjunction with other diagnostic studies, is not consistent with congestive heart failure. Viral pneumonia with an ARDS picture is a possibility. All PCR tests for common viruses are negative. Given the drop in hemoglobin and the characteristic CT findings, alveolar hemorrhage is a possibility. The patient's hemoglobin has been stable over the last 24 hours. No further hemoptysis over the last 36 hours. His clinical condition has remained stable. His D-dimer is low on repeat testing which makes alveolar hemorrhage rather unlikely. Urinalysis is unremarkable and kidney function is normal. Screening for underlying autoimmune disease is pending. Vaping-induced lung injury with hemoptysis appears more likely now given the patient's stable respiratory status over the last 36 hours, no further hemoptysis, stable hemoglobin, low D Dimer, and no significant leukocytosis. The respiratory panel is pending. Plan: Will proceed with a bronchoscopy and BAL around noon today. The procedure was explained to the patient who is agreeable. Continue with the current regimen.T (3) Community acquired pneumonia: Code(s): J18.9 - Pneumonia, unspecified organism Status: Acute Subjective Date/time seen: 05/16/24 08:58 Interval history: Patient was transferred to IMU last night. Used only CPAP and supplemental oxygen at night. He has had no new respiratory symptoms. He stated that his breathing is essentially unchanged. No further hemoptysis over the last 24 hours. No fever chills no wheezing. Currently sitting up in bed while working on his laptop. Review of Systems Review of Systems: All systems reviewed & are unremarkable except as noted in HPI and below (HPI and below) Exam Narrative: GENERAL APPEARANCE: Well developed, well nourished, alert and cooperative, and appears to be in in mild respiratory distress while on supplemental oxygen via nasal cannula. SKIN: Inspection of the skin reveals no rashes, ulcerations or petechiae. HEENT: Sclerae anicteric and conjunctivae pink and moist. Extraocular movements were intact and pupils were equal, round, and reactive to light. The oral mucosa, hard and soft palate, tongue and posterior pharynx were normal. NECK: Supple. There was no thyroid enlargement, and no tenderness, or masses were felt. CHEST: Normal AP diameter and normal contour without any kyphoscoliosis. LUNGS: Essentially clear breath sounds bilaterally no wheezing, no crackles CARDIAC: There was a regular rate and rhythm without any murmurs, gallops, rubs. ABDOMEN: Soft and nontender with normal bowel sounds. There was no organomegaly. LYMPH NODES: No lymphadenopathy was appreciated in the neck. EXTREMITIES: No cyanosis, clubbing or trace pedal edema at ankles NEUROLOGIC: Alert and oriented x 3. Normal affect. Objective Data Vital Signs Vital Signs: Vital Signs - 24 hr 05/15/24 13:46 05/15/24 14:00 05/15/24 14:01 Temperature Pulse Rate 95 95 Respiratory Rate 20 20 Blood Pressure Pulse Oximetry 92 Oxygen Delivery High Flow Nasal Cannula Oxygen Flow Rate 8 05/15/24 14:44 05/15/24 15:46 05/15/24 16:00 Temperature 37.0 C 36.6 C Pulse Rate 95 78 91 Respiratory Rate 16 19 Blood Pressure 126/61 129/64 Pulse Oximetry 94 93 Oxygen Delivery Oxygen Flow Rate
--- NOTE | 2024-05-16 10:35 | PC.NURSE ---
to gi lab for bronchoscopy via stretcher accompanied by RN and family
[2024-05-16] MEDS: LACTATED RINGERS 1,000 ML 150 ML IV CONT (10:55)
--- NOTE | 2024-05-16 11:25 | WPDANESEPPF ---
Anes - Initial Pre Proc Eval Procedure: Operation Date: 05/16/24 12:30 Proposed Procedures p Flexible Bronchoscopy - Ha Hester MD Date/Time: 05/16/24 11:25 Surgeon: Alessandro Croft MD Pre Op Diagnosis: Community-Acquired pneumonia Patient Data Age: 43 Gender: M Height: 1.91 m Weight: 172.7 kg Last Vital Signs Temp 36.6 C 05/16/24 10:48 Pulse 82 05/16/24 11:05 Resp 18 05/16/24 11:05 BP 114/58 L 05/16/24 10:48 Pulse Ox 93 05/16/24 10:48 O2 Del Method High Flow Nasal Cannula 05/16/24 10:48 O2 Flow Rate 8 05/16/24 10:48 Allergies Allergy/AdvReac Type Severity Reaction Status Date / Time No Known Allergies Allergy Mild Verified 05/16/24 10:45 Home Medications Medication Instructions Recorded Confirmed Type lisinopril 20 1 tablet PO DAILY 10/17/22 05/16/24 History mg-hydrochlorothiazide 12.5 mg tablet amoxicillin 875 mg-potassium 1 tablet PO Q12H 10 days #20 tabs 05/13/24 05/16/24 Rx clavulanate 125 mg tablet azithromycin 250 mg tablet See Rx Instructions PO .COMPLEX #6 05/13/24 05/16/24 Rx (Zithromax Z-Jasbir) tabs amlodipine 10 mg tablet 10 mg PO DAILY 05/14/24 05/16/24 History aspirin 81 mg tablet 81 mg PO DAILY 05/14/24 05/16/24 History Laboratory Tests 05/15/24 05/15/24 05/15/24 04:40 12:03 12:35 WBC RBC Hgb Hct MCV MCH MCHC RDW Plt Count MPV Immature Gran % (Auto) Neut % (Auto) Lymph % (Auto) [place] % (Auto) Eos % (Auto) Baso % (Auto) Lymph # (Auto) [place] # (Auto) Eos # (Auto) Baso # (Auto) Abs Immat Gran (auto) Absolute Neuts (auto) Absolute Nucleated RBC Nucleated RBC % PT 15.2 H Seconds (11.1-14.7) INR 1.2 APTT 27.7 Seconds (22.3-36.8) D-Dimer Sodium Potassium Chloride Carbon Dioxide Anion Gap BUN Creatinine Estim Creat Clear Calc Estimated GFR Glucose Calcium Total Bilirubin AST ALT Alkaline Phosphatase C-Reactive Protein 6.2 H mg/dL (<1.0) Total Protein Albumin Urine Color Urine Appearance Urine pH Ur Specific [place] Urine Protein Urine Glucose (UA) Urine Ketones Ur Blood (Man) Urine Nitrate Urine Bilirubin Urine Urobilinogen Ur Leukocyte Esterase Nasal MRSA (PCR) Not detected (NOT DETECTE) Nasal RSV Type A (PCR) Pending Nasal RSV Type B (PCR) Pending Anti-Proteinase 3 FEIA c/o 1.9 Pending Anti-Myeloperoxidase Pending Chlamy pneumoniae PCR Pending Adenovirus DNA Pending Human Bocavirus (TERI) Pending Coronavirus Type OC43 Pending Coronavirus Type HKU1 Pending Coronavirus Type 229E Pending Coronavirus Type NL63 Pending HIV 1&2 Ab/P24 Ag 4thGn Human Metapneumovir PCR Pending Influenza A (PCR) Pending Influenza A (H1) RNA Pending Influenza A (H3) PCR Pending M. pneumoniae DNA Pending Parainfluenza PCR Pending Parainfluenza 2 (PCR) Pending Parainfluenza 3 RNA (PCR) Pending Parainfluenza 4 (PCR) Pending Rhino/Enterovirus (TERI) Pending SARS-CoV-2 RNA (RT-PCR) Pending Influenza Type B (PCR) Pending [facility] Comment Pending
--- NOTE | 2024-05-16 11:46 | PM.IMPN ---
Progress Note: A&P Assessment and Plan (1) Community acquired pneumonia: Code(s): J18.9 - Pneumonia, unspecified organism Status: Acute Assessment and Plan: WBC 12.2 Temp 97.9, Does not meet SIRS criteria. IV Cetriaxone 1 gm daily and Azithromycin 250 mg IVPB q day for 4 days. Duonebs q 6 hours. Guaifenesin/ Dextromethorphan 1 tab q 12 for 7 days. Encourage hydration. Legionella pneumophila Ag urine, pneumococcal antigen urine,Sputum Culture and BC x2 pending. Monitor labs. d. dimer negative. CTA pulmonary completed today: IMPRESSION: 1. No definitive pulmonary embolism. Sensitivity decreased in the smaller segmental and subsegmental pulmonary arteries due to suboptimal contrast opacification. 2. Extensive groundglass opacities and more dense consolidation throughout both lungs which could represent moderate pulmonary edema or pneumonia. Pulmonology consult. Incentive spirometer. Patient transferred too the IMU yesterday. Bronchoscopy today. (2) Hypoxic respiratory failure: Code(s): J96.91 - Respiratory failure, unspecified with hypoxia Status: Acute Assessment and Plan: 02 @7liters high flow. d dimer negative. CTA pulmonary completed today: IMPRESSION: 1. No definitive pulmonary embolism. Sensitivity decreased in the smaller segmental and subsegmental pulmonary arteries due to suboptimal contrast opacification. 2. Extensive groundglass opacities and more dense consolidation throughout both lungs which could represent moderate pulmonary edema or pneumonia. Pulmonology consult. (3) Hypertension: Code(s): I10 - Essential (primary) hypertension Status: Chronic Assessment and Plan: Continue home Amlodipine 10 mg PO daily and lisinopril 20 mg combination with 12.5 mg hydrochlorothiazide. Monitor vital signs. Subjective Date/time seen: 05/16/24 11:46 Interval history: Patient is a 43 year old male admitted for pneumonia. Patient diagnosed with community-acquired pneumonia yesterday at urgent care and given Augmentin and Azithromycin. Patient reports taking one dose of each before coming to the hospital. He has been dealing with 3 days of difficulty breathing, cough productive of clear and admixed with blood tinged sputum. Denies chest pain, vomiting, or diaphoresis. Reports nausea and palpitations with coughing at times. Has a history of a pneumonia that did not require any hospitalization couple years prior. No recent injuries or travel. No recent procedures or other DVT/PE risk factors. Was otherwise in his normal state of health. Patient reports that his sats on his watch showed the mid 80's prior to coming to the hospital. He presents today and was noted to be hypoxic in triage. He was requiring oxygen supplementation. He does wear a CPAP at home for ULISES. Patient is a former is a cigarette smoker, patient currently vapes nicotine 3 mg. Patient with worsening shortness of breath this morning requiring 02@5 liters nasal cannula. Sa02 improved to 94% on 5 liters after breathing treatment. Coughing up dark red blood, has not coughed any up in the last 36 hours. Patient is scheduled for a bronchoscopy today. White blood cells 12.2, H&H 10.4 and 32.2, Total bili 1.7. D. dimer negative. Creatinine 0.6. Chest X-ray showed:Extensive hazy bibasilar airspace disease/consolidation, right worse than left. Correlate for pulmonary edema versus bilateral pneumonia. Review of Systems Constitutional: Constitutional: Denies difficulty sleeping and Reports fatigue ENT: Denies nasal congestion and Denies nasal discharge Cardiovascular: Cardiovascular: Denies chest pain, Denies palpitations and Reports dyspnea on exertion Respiratory: Respiratory: Reports hemoptysis and Reports dyspnea on exertion Gastrointestinal: Gastrointestinal: Denies constipation, Denies diarrhea, Reports nausea and Denies vomiting Musculoskeletal: Musculoskeletal: Reports no additional musculo
[2024-05-16] MEDS: LIDOCAINE HCL 2% LOCAL INJ 20 ML VIAL 4 ML INFILTRATE (12:42)
--- NOTE | 2024-05-16 12:59 | SUR.PHASEII ---
xray at bedside, respiratory at bedside placing bipap
--- NOTE | 2024-05-16 13:17 | P.CDI_ITS ---
CDI Query Clarification Request Patient with a BMI of 47.6 please provide a diagnosis to accompany this finding: * Overweight * Obesity * Morbid Obesity * Other/Unknown <Clari Frye RN - Last Filed: 05/16/24 13:18> Clarified Diagnosis Clarified Diagnosis: Morbid obesity <Mahogany Iniguez APRN - Last Filed: 05/16/24 15:06>
--- NOTE | 2024-05-16 13:33 | WPDCNINT ---
Assessment and Plan Assessment and plan (1) Hypoxic respiratory failure: Code(s): J96.91 - Respiratory failure, unspecified with hypoxia Status: Acute Assessment and Plan: 40-year-old obese male with history of vaping presented with history of productive cough with hemoptysis CTA chest negative for PE and showed 1. No definitive pulmonary embolism. Sensitivity decreased in the smaller segmental and subsegmental pulmonary arteries due to suboptimal contrast opacification. 2. Extensive groundglass opacities and more dense consolidation throughout both lungs which could represent moderate pulmonary edema or pneumonia. Status post bronchoscopy which confirmed alveolar hemorrhage UA negative for any sign hematuria suggesting against pulmonary renal syndrome. Patient afebrile with normal WBC on presentation and normal procalcitonin level suggesting against bacterial infection PCR for coronavirus influenza and RSV were negative It appears the patient likely has vaping induced lung injury or ARDS leading to diffuse alveolar hemorrhage. Hypersensitivity pneumonitis is also possibility but patient will be on steroids Expanded viral panel has been ordered and pending Urine pneumococcal antigen mycoplasma IgM and urine Legionella antigen ordered and pending ANCA ordered and result pending Will check urine drug screen, DEMIAN, ESR, anti GBM antibody Continue empiric azithromycin and Rocephin Patient will be monitored closely in ICU. May need re intubation if respiratory status deteriorates. He was on BiPAP but I have transition him to CPAP at 10. While I was examining the patient I was able to wean down his FiO2 from 100% to 60%. Will obtain ABG. He states that he has not had any hemoptysis since yesterday. The goal at this point will be to try to get him off CPAP quickly and transition to Vapotherm. If hemoptysis reoccurs or hypoxia worsens, he may need intubation. Pulmonology is following and patient has steroids ordered Yesterday, attempt was made to transfer patient to [facility] the patient was not accepted by pulmonary service (2) ULISES (obstructive sleep apnea): Code(s): G47.33 - Obstructive sleep apnea (adult) (pediatric) Status: Acute Assessment and Plan: Night CPAP ordered (3) Pulmonary alveolar hemorrhage: Code(s): R04.89 - Hemorrhage from other sites in respiratory passages Status: Acute Assessment and Plan: See above (4) ARDS (adult respiratory distress syndrome): Code(s): J80 - Acute respiratory distress syndrome Status: Acute Assessment and Plan: See above (5) Sinus bradycardia: Code(s): R00.1 - Bradycardia, unspecified Status: Acute Assessment and Plan: Patient had episode of sinus bradycardia which was symptomatic during recovery. Patient was 1 given 1 mg of atropine with quick resolution. Chest x-ray done and the recovery showed no pneumothorax and stable bilateral disease. Will give 500 cc mL bolus, check EKG, ABG troponins and echo Plan DVT prophylaxis -SCD Nutrition - npo Code Status - Full Code Total Critical Care Time - 45 minutes Due to a high probability of clinically significant, life threatening deterioration, the patient required my highest level of preparedness to intervene emergently and I personally spent this critical care time directly and personally managing the patient. This critical care time included obtaining a history; examining the patient; pulse oximetry; ordering and review of studies; arranging urgent treatment with development of a management plan; evaluation of patient's response to treatment; frequent reassessment; and discussions with other providers. It was exclusive of separately billable procedures and treating other patients and teaching time. Please see Assessment and Plan section and the rest of the note for further information on patient assessment and treatment Media Reconciliation Specialist Consult N
--- NOTE | 2024-05-16 13:45 | PC.NURSE ---
Addendum entered by Yris Larose RN 05/16/24 14:37: ICU 8 Original Note: pt to go to ICU post Bronchoscopy- report given to Yris Crenshaw RN- personal belongings transferred to ICU 4
[2024-05-16 13:56] LABS: Appearance Bronchial Fluid Turbid; Color Bronchial Fluid Red; Lymphocytes Bronchial Fluid 22 %; Monocytes Bronchial Fluid 11 %; Neutrophils Bronchial Fluid 45 %; Source Bronchial Fluid Bronchial Lavage
[2024-05-16 13:57] LABS: Macrophages Bronchial Fluid 18; Other Cells Bronchial Fluid 4 %
--- NOTE | 2024-05-16 13:59 | SUR.PHASEII ---
Addendum entered by Vidhi Perkins RN 05/16/24 14:40: Ediphone Operator changed pt from BIPAP to CPAP at bedside. 1404 Pt complains of dizziness. Heart rate 46. Atropine ordered by cnc set up operator and given. CPAP removed and bag/mask used to ventilate pt. Afterward VSS he is awake and alert and states he is no longer dizzy. 1425 Pt transferred to ICU with CPAP and respiratory therapist at bedside. Original Note: Ediphone Operator at bedside to evaluate pt.
[2024-05-16 14:13] LABS: Myeloperoxidase Ab <1.0 AI
--- NOTE | 2024-05-16 14:25 | ECG_ITS ---
Test Date: 2024-05-16 14:33:20 Measurements Intervals [place] Rate: 88 P: 2 MO: 170 QRS: -4 QRSD: 103 T: 105 QT: 353 QTc: 428 Interpretive Statements SINUS RHYTHM BORDERLINE ST-T WAVE ABNORMALITY- HIGH LATERAL LEADS BASELINE ARTIFACT- I, III, AVL, V2 BORDERLINE ECG Compared to ECG 05/14/2024 03:19:59 NO SIGNIFICANT CHANGE Electronically Signed On 05-16-2024 14:52:05 CDT by Bobby Morton D.O.
[2024-05-16 14:31] LABS: Glucose Point of Care 103 mg/dl (65-105)
[2024-05-16 14:57] LABS: Alveolar/Arterial O2 Gradient 165.7 mmHg; Base Excess ABG 3.9 mEq/l (+/-2.0); Fractional Inspired Oxygen 40 %; HCO3 ABG 27.5 mEq/l (22.0-26.0); Oxygen Content ABG 13.4 %vol (16.0-22.0); Oxygen Saturation ABG 96.2 % (95.0-100.0); Oxyhemoglobin 94.5 % THb (90.0-100.0); PCO2 ABG 37.6 mmHg (35.0-45.0); PO2 ABG 76.3 mmHg (80.0-100.0); PO2 FiO2 Ratio Arterial Blood 1.91 %; pH ABG 7.482 (7.350-7.450)
[2024-05-16 14:59] LABS: Device CPAP; Modified Allen's Test Pass; Site Drawn RIGHT RADIAL
[2024-05-16 15:00] LABS: CPAP 10 cmH2O
[2024-05-16] MEDS: methylPREDNISolone SOD SUCC 1,000 MG in DEXTROSE 5% 100 ML 200 MG IVPB (15:07)
[2024-05-16] MEDS: SODIUM CHLORIDE 0.9% IV 500 ML IV CONT (15:10)
[2024-05-16 15:26] LABS: Troponin I < 0.012 ng/mL (0.000-0.034)
[2024-05-16 15:52] LABS: Erythrocyte Sedimentation Rate 97 mm/hr (0-20)
[2024-05-16 20:55] LABS: Troponin I < 0.012 ng/mL (0.000-0.034)
[2024-05-16 20:56] LABS: Amphetamine Screen Urine Negative (Negative); Barbiturate Screen Urine Negative (Negative); Benzodiazepines Screen Urine Negative (Negative); Cannabinoid Screen Urine Negative (Negative); Cocaine Screen Urine Negative (Negative); Methadone Screen Urine Negative (Negative); Opiate Screen Urine Negative (Negative); Phencyclidine Screen Urine Negative (Negative)
[2024-05-16 21:08] LABS: Glucose Point of Care 151 mg/dl (65-105)
[2024-05-17] VITALS (28 sets, daily range): BP systolic 108–136; BP diastolic 53–76; PULSE 61–93; RESP 13–31; TEMP 36.8–37.6; O2SAT 85–100
[2024-05-17 01:13] LABS: Glucose Point of Care 136 mg/dl (65-105)
[2024-05-17] MEDS: IPRATROPIUM 0.5 MG/ALBUTEROL SULFATE 2.5 MG AMPUL.NEB 3 ML INHALATION ×4 (02:50→21:50)
[2024-05-17 04:45] LABS: Basophils Percent Auto 0.1 % (0.2-1.2); Hematocrit 29.9 % (42.0-52.0); Hemoglobin 9.8 g/dL (14.0-18.0); Immature Granulocyte Absolute 0.11 K/mm3 (0.00-0.031); Immature Granulocyte Percent A 0.8 % (0-0.5); Lymphocytes Absolute Auto 0.84 K/mm3 (0.9-3.2); Lymphocytes Percent Auto 6.3 % (18.3-44.2); Mean Corpuscular HGB Conc 32.8 g/dl (32-36); Mean Corpuscular Hemoglobin 29.3 pg (26-34); Mean Corpuscular Volume 89.3 fl (80-100); Mean Platelet Volume 10.2 fl (7.4-10.4); Monocytes Absolute Auto 0.2 K/mm3 (0.1-0.6); Monocytes Percent Auto 1.7 % (2.6-8.5); Neutrophils Absolute Auto 12.3 K/mm3 (1.3-6.7); Neutrophils Percent Auto 91.1 % (45.5-73.1); Platelet Count Result 253 k/mm3 (150-375); Red Blood Count 3.35 M/mm3 (4.6-6.20); Red Cell Distribution Width 13.2 % (11.5-14.5); White Blood Count 13.4 K/mm3 (4.5-10.0)
--- NOTE | 2024-05-17 04:51 | PCRCNOTE ---
Sputum not done, pt post bronchoscopy, with increasing O2 needs
[2024-05-17 04:57] LABS: Alanine Aminotransferase 24 U/L (6-50); Alkaline Phosphatase 62 U/L (38-126); Anion Gap 8 mmol/L (4-12); Aspartate Amino Transferase 30 U/L (17-59); Bilirubin,Total 1.6 mg/dL (0.2-1.3); Blood Urea Nitrogen 22 mg/dL (9-20); Calcium 8.5 mg/dL (8.4-10.2); Carbon Dioxide 33 mmol/L (22-30); Chloride 99 mmol/L (98-107); Estimated CRCL calculation 199 ml/min; Estimated Glomerular Filt Rate > 60; Glucose 137 mg/dL (65-110); Magnesium 2.4 mg/dL (1.6-2.3); Phosphorus 3.6 mg/dL (2.5-4.5); Potassium 3.7 mmol/L (3.4-5.0); Sodium 140 mmol/L (137-145)
[2024-05-17 05:06] LABS: Troponin I < 0.012 ng/mL (0.000-0.034)
[2024-05-17] MEDS: SODIUM CHLOR 3% 15 ML NEB (RESPIRATORY THERAPY) 6 ML INHALATION (05:29)
[2024-05-17] MEDS: AZITHROMYCIN IV 250 MG in SODIUM CHLORIDE 0.9% IV 250 ML IVPB (06:10)
[2024-05-17 08:13] LABS: Glucose Point of Care 142 mg/dl (65-105)
[2024-05-17] MEDS: NICOTINE (*PBKC) 14 MG PATCH 1 PATCH TRANSDERM (09:06)
[2024-05-17] MEDS: guaiFENesin 600 MG/DEXTROMETHORPHAN 30 MG SR TAB 12 HR 1 TAB PO ×2 (09:06→20:03)
--- NOTE | 2024-05-17 09:33 | WPDINTPN ---
Progress Note: A&P Assessment and Plan (1) Hypoxic respiratory failure: Code(s): J96.91 - Respiratory failure, unspecified with hypoxia Status: Acute Assessment and Plan: 40-year-old obese male with history of heavy vaping presented with history of productive cough with hemoptysis CTA chest negative for PE and showed 1. No definitive pulmonary embolism. Sensitivity decreased in the smaller segmental and subsegmental pulmonary arteries due to suboptimal contrast opacification. 2. Extensive groundglass opacities and more dense consolidation throughout both lungs which could represent moderate pulmonary edema or pneumonia. Status post bronchoscopy which confirmed diffuse alveolar hemorrhage UA negative for any sign hematuria suggesting against pulmonary renal syndrome. Patient afebrile with normal WBC on presentation and normal procalcitonin level suggesting against bacterial infection PCR for coronavirus influenza and RSV was negative It appears the patient likely has vaping induced lung injury or ARDS leading to diffuse alveolar hemorrhage. Hypersensitivity pneumonitis is also possibility but patient will be on steroids Expanded viral panel has been ordered and pending Urine pneumococcal antigen mycoplasma IgM and urine Legionella antigen ordered and pending ANCA negative ESR elevated Negative urine drug screen, Pending DEMIAN, anti GBM antibody Continue empiric azithromycin and Rocephin for community-acquired pneumonia although appears to be a unlikely the etiology He is currently on Vapotherm at 55% FiO2 and 45 L. He wears CPAP at night as he also has sleep apnea. He has minimal cough now and minimal hemoptysis. Patient will be continue to be monitored closely in ICU. May need intubation if respiratory status deteriorates. If hemoptysis reoccurs or hypoxia worsens, he may need intubation. Pulmonology is following and patient has received steroids 05/15 attempt was made to transfer patient to [facility] the patient was not accepted by pulmonary service Patient is aware that he is critically ill and if situation deteriorates he may need intubation and mechanical ventilation and respiratory failure is not going to get better quickly (2) ULISES (obstructive sleep apnea): Code(s): G47.33 - Obstructive sleep apnea (adult) (pediatric) Status: Acute Assessment and Plan: Night CPAP ordered (3) Pulmonary alveolar hemorrhage: Code(s): R04.89 - Hemorrhage from other sites in respiratory passages Status: Acute Assessment and Plan: See above (4) ARDS (adult respiratory distress syndrome): Code(s): J80 - Acute respiratory distress syndrome Status: Acute Assessment and Plan: See above (5) Sinus bradycardia: Code(s): R00.1 - Bradycardia, unspecified Status: Acute Assessment and Plan: 05/16 Patient had episode of sinus bradycardia which was symptomatic during recovery. Patient was 1 given 1 mg of atropine with quick resolution. Chest x-ray done and the recovery showed no pneumothorax and stable bilateral disease. Patient was given 500 cc mL bolus, EKG reviewed and unremarkable Troponins were negative Echo is pending Plan DVT prophylaxis -SCD. Will start Lovenox tomorrow if patient hemoptysis remains in control Nutrition -start clear liquid diet Code Status - Full Code I spoke to patient in detail and explained him the current working diagnosis and treatment plan. I explained him that the course of disease is such that he will not get better quickly and there is a potential of him getting worse and requiring intubation mechanical ventilation. He verbalized understanding. I answered his question and help him find additional information on the Internet to read. Total Critical Care Time - 35 minutes Due to a high probability of clinically significant, life threatening deterioration, the patient required my highest level of preparedness to inte
--- NOTE | 2024-05-17 09:49 | PM.PNPUL ---
Progress Note: A&P Assessment and Plan (1) Hemoptysis: Code(s): R04.2 - Hemoptysis Status: Acute (2) Hypoxic respiratory failure: Code(s): J96.91 - Respiratory failure, unspecified with hypoxia Status: Acute Assessment and Plan: Diagnostic studies have shown extensive ground-glass opacities with consolidations bilaterally, and a decrease in his hemoglobin from 13.5 about 7 months ago down to 10.2, with no leukocytosis on presentation. The patient underwent bronchoscopy with BAL yesterday. He had bloody secretions in both lungs. The lungs otherwise appeared with no mucosal edema, erythema, or intraluminal masses. BAL from the right middle lobe, done twice, was hemorrhagic. The patient does not have any other evidence of diffuse alveolar hemorrhage related to autoimmune disease as urinalysis was unremarkable and kidney function is normal. Tests for underlying autoimmune disease are pending, as is the respiratory panel for viruses. He has been on antibiotics for possible community-acquired pneumonia. BAL cultures are pending. The patient's history in conjunction with the diagnostic studies suggests alveolar hemorrhage related to vaping rather than to underlying vasculitis. The patient received 1 g of Solu-Medrol last p.m. His respiratory status has not changed significantly over the last 48 hours. He has had no significant hemoptysis since admission to the hospital. BAL cell analysis is consistent with vaping-induced lung injury. Plan: Will continue to monitor the respiratory status. The patient was started on Solu-Medrol 80 mg IV daily. continue with current antibiotic regimen, DVT prophylaxis as ordered. (3) Community acquired pneumonia: Code(s): J18.9 - Pneumonia, unspecified organism Status: Acute Subjective Date/time seen: 05/17/24 09:49 Interval history: patient has no new respiratory symptoms. Shortness of breath about unchanged while on supplemental oxygen with FiO2 in the range of 45-50%. Patient used hospital BiPAP last night. On has no fever or chills. coughed up a small amount of dark blood last night but nothing since then. Review of Systems Review of Systems: All systems reviewed & are unremarkable except as noted in HPI and below ( HPI and below) Exam Narrative: GENERAL APPEARANCE: Well developed, well nourished, alert and cooperative, and appears to be in in mild respiratory distress while on supplemental oxygen SKIN: Inspection of the skin reveals no rashes, ulcerations or petechiae. HEENT: Sclerae anicteric and conjunctivae pink and moist. Extraocular movements were intact and pupils were equal, round, and reactive to light. NECK: Supple. There was no thyroid enlargement, and no tenderness, or masses were felt. CHEST: Normal AP diameter and normal contour without any kyphoscoliosis. LUNGS: Essentially clear breath sounds bilaterally no wheezing, no crackles CARDIAC: There was a regular rate and rhythm without any murmurs, gallops, rubs. ABDOMEN: Soft and nontender with normal bowel sounds. There was no organomegaly. LYMPH NODES: No lymphadenopathy was appreciated in the neck. EXTREMITIES: No cyanosis, clubbing no pedal edema NEUROLOGIC: Alert and oriented x 3. Normal affect. Objective Data Vital Signs Vital Signs: Vital Signs - 24 hr 05/16/24 10:17 05/16/24 10:48 05/16/24 10:55 Temperature 36.6 C Pulse Rate 111 H 90 81 Respiratory Rate 20 18 Blood Pressure 114/58 L Pulse Oximetry 93 Oxygen Delivery High Flow Nasal Cannula Oxygen Flow Rate 8 Fraction of Inspired Oxygen 05/16/24 11:05 05/16/24 12:44 05/16/24 12:54 Temperature 36.7 C Pulse Rate 82 101 H Respiratory Rate 18 22 H Blood Pressure 109/56 L Pulse Oximetry 92 95 Oxygen Delivery Simple Face Mask Simple Face Mask Oxygen Flow Rate 15 10 Fraction of Inspired Oxygen 05/16/24 12:54 05/16/24 13:34 05/16/24 13:04 Temperature Pulse Rate 101 H 86 92 Respiratory R
[2024-05-17 11:59] LABS: Glucose Point of Care 142 mg/dl (65-105)
[2024-05-17 16:34] LABS: Glucose Point of Care 104 mg/dl (65-105)
[2024-05-17] MEDS: methylPREDNISolone SOD SUCC 125 MG VIAL 80 MG IV PUSH (16:37)
--- NOTE | 2024-05-17 18:22 | PM.IMPN ---
Progress Note: A&P Assessment and Plan (1) Hypoxic respiratory failure: Code(s): J96.91 - Respiratory failure, unspecified with hypoxia Status: Acute Assessment and Plan: Patient initally sen on 05/13 for cough and hemoptysis. He has a hx of hemoptysis with PNA. CXR showing RUL and RML PNA. Patient discharged home on Azithro and Augmentin. He returned to the ED on 05/14 for worsening symptoms. CXR 05/14 showing extensive hazy bibasilar airspace disease/consolidation, right worse than left. WBC was normal and patient afebrile. COVID, RSV and influenza PCR negative. CRP 6.2. ESR 97. PCT 0.1. Started on Rocephin and Doxycycline. Solu-Medrol given. CTA chest negative for PE but extensive groundglass opacities and more dense consolidation throughout both lungs which could represent moderate pulmonary edema or pneumonia. Pulmonary consulted and patient underwent bronchoscopy which confirmed diffuse alveolar hemorrhage UA negative for any sign hematuria suggesting against pulmonary renal syndrome. Consider bacterial PNA, vaping induced lung injury, autoimmune process, ARDS leading to diffuse alveolar hemorrhage, hypersensitivity pneumonitis Has hx of PNA so consider IgA deficiency. HIV negative. ANCA negative. UDS negative. MRSA nasal swab negative. Expanded viral panel has been ordered and pending Urine pneumococcal antigen mycoplasma IgM and urine Legionella antigen ordered and pending. DEMIAN, anti GBM antibody pending BCx NGTD. Sputum 05/14 negative. Continue empiric azithromycin and Rocephin for community-acquired pneumonia although appears to be a unlikely etiology He is currently on Vapotherm at 55% FiO2 and 45 L. He wears CPAP at night as he also has sleep apnea. Patient will be continue to be monitored closely in ICU. May need intubation if respiratory status deteriorates. Patietn also remains on Solu-Medrol Appreciate supervisor fur dressing and pulmonary input (2) ULISES (obstructive sleep apnea): Code(s): G47.33 - Obstructive sleep apnea (adult) (pediatric) Status: Acute Assessment and Plan: Night CPAP ordered (3) Pulmonary alveolar hemorrhage: Code(s): R04.89 - Hemorrhage from other sites in respiratory passages Status: Acute Assessment and Plan: As above (4) ARDS (adult respiratory distress syndrome): Code(s): J80 - Acute respiratory distress syndrome Status: Acute Assessment and Plan: As above (5) Sinus bradycardia: Code(s): R00.1 - Bradycardia, unspecified Status: Acute Assessment and Plan: 05/16 Patient had episode of sinus bradycardia which was symptomatic during recovery. Patient was given 1 mg of atropine with quick resolution. Chest x-ray done and the recovery showed no pneumothorax and stable bilateral disease. Patient was given 500 cc mL bolus EKG reviewed and unremarkable Troponins were negative Echo was unremarkable with normal systolic and diastolic function. Monitor on tele (6) Pneumonia: Qualifiers: Laterality: unspecified laterality Lung location: unspecified part of lung Pneumonia type: due to unspecified organism Qualified Code(s): J18.9 - Pneumonia, unspecified organism Code(s): J18.9 - Pneumonia, unspecified organism Status: Acute Assessment and Plan: As above Plan DVT prophylaxis -SCD. Code Status - Full Code Subjective Date/time seen: 05/17/24 18:22 Interval history: 43yo male with obesity and who smokes and vapes here for worsening PNA. He feel better. He does have a bird at home. He has had a hx of PNA with hemoptysis in the past but not with chronic sinusitis. He wears CPAP at home and does clean his machine regularly. Exam Narrative: AF 99.6 125/67 87 17 97% HFNC Gen - NARD sitting up in chair Chest - CTA bilaterally, nml RR CV - RRR S1/S2. Tele showing no significant dysrhythmias Abd - Soft, obese, NT Ext - No pedal edema Psych - N
[2024-05-17 23:28] LABS: Glucose Point of Care 129 mg/dl (65-105)
[2024-05-17 23:32] LABS: Glucose Point of Care 150 mg/dl (65-105)
[2024-05-18] VITALS (26 sets, daily range): BP systolic 120–138; BP diastolic 49–84; PULSE 63–98; RESP 12–35; TEMP 36.3–36.9; O2SAT 87–98
[2024-05-18] MEDS: IPRATROPIUM 0.5 MG/ALBUTEROL SULFATE 2.5 MG AMPUL.NEB 3 ML INHALATION ×4 (03:57→19:53)
[2024-05-18 04:21] LABS: Glucose Point of Care 134 mg/dl (65-105)
[2024-05-18 04:55] LABS: Basophils Percent Auto 0.1 % (0.2-1.2); Eosinophils Percent Auto 0.1 % (0-4.4); Hematocrit 31.3 % (42.0-52.0); Hemoglobin 9.8 g/dL (14.0-18.0); Immature Granulocyte Absolute 0.12 K/mm3 (0.00-0.031); Immature Granulocyte Percent A 0.7 % (0-0.5); Lymphocytes Absolute Auto 1.56 K/mm3 (0.9-3.2); Lymphocytes Percent Auto 9.7 % (18.3-44.2); Mean Corpuscular HGB Conc 31.3 g/dl (32-36); Mean Corpuscular Hemoglobin 28.6 pg (26-34); Mean Corpuscular Volume 91.3 fl (80-100); Monocytes Absolute Auto 0.6 K/mm3 (0.1-0.6); Monocytes Percent Auto 3.8 % (2.6-8.5); Neutrophils Absolute Auto 13.8 K/mm3 (1.3-6.7); Neutrophils Percent Auto 85.6 % (45.5-73.1); Platelet Count Result 246 k/mm3 (150-375); Red Blood Count 3.43 M/mm3 (4.6-6.20); Red Cell Distribution Width 13.1 % (11.5-14.5); White Blood Count 16.1 K/mm3 (4.5-10.0)
[2024-05-18] MEDS: AZITHROMYCIN IV 250 MG in SODIUM CHLORIDE 0.9% IV 250 ML IVPB (04:57)
[2024-05-18 05:08] LABS: Alanine Aminotransferase 26 U/L (6-50); Alkaline Phosphatase 68 U/L (38-126); Anion Gap 8 mmol/L (4-12); Aspartate Amino Transferase 27 U/L (17-59); Bilirubin,Total 1.9 mg/dL (0.2-1.3); Blood Urea Nitrogen 24 mg/dL (9-20); Calcium 8.4 mg/dL (8.4-10.2); Carbon Dioxide 28 mmol/L (22-30); Chloride 102 mmol/L (98-107); Estimated CRCL calculation 229 ml/min; Estimated Glomerular Filt Rate > 60; Glucose 139 mg/dL (65-110); Magnesium 2.6 mg/dL (1.6-2.3); Sodium 138 mmol/L (137-145)
[2024-05-18] MEDS: SODIUM CHLOR 3% 15 ML NEB (RESPIRATORY THERAPY) 6 ML INHALATION (06:07)
[2024-05-18 08:06] LABS: Glucose Point of Care 118 mg/dl (65-105)
--- NOTE | 2024-05-18 08:53 | WPDINTPN ---
Progress Note: A&P Assessment and Plan (1) Hypoxic respiratory failure: Code(s): J96.91 - Respiratory failure, unspecified with hypoxia Status: Acute Assessment and Plan: 40-year-old obese male with history of heavy vaping presented with history of productive cough with hemoptysis CTA chest negative for PE and showed 1. No definitive pulmonary embolism. Sensitivity decreased in the smaller segmental and subsegmental pulmonary arteries due to suboptimal contrast opacification. 2. Extensive groundglass opacities and more dense consolidation throughout both lungs which could represent moderate pulmonary edema or pneumonia. Status post bronchoscopy which confirmed diffuse alveolar hemorrhage UA negative for any sign hematuria suggesting against pulmonary renal syndrome. Patient afebrile with normal WBC on presentation and normal procalcitonin level suggesting against bacterial infection PCR for coronavirus influenza and RSV was negative It appears the patient likely has vaping induced lung injury or ARDS leading to diffuse alveolar hemorrhage. Hypersensitivity pneumonitis is also possibility but patient will be on steroids Expanded viral panel has been ordered and pending Urine pneumococcal antigen mycoplasma IgM and urine Legionella antigen ordered and pending ANCA negative ESR elevated Negative urine drug screen, Pending DEMIAN, anti GBM antibody Continue empiric azithromycin and Rocephin for community-acquired pneumonia although appears to be a unlikely the etiology Overall clinically he has improved with improved symptoms and decrease hypoxia requiring only 6 L oxygen this morning. Continue oxygen supplementation. And CPAP at night. Chest x-ray done today shows improvement in infiltrates. Pulmonary following and plans to hold further steroids (2) ULISES (obstructive sleep apnea): Code(s): G47.33 - Obstructive sleep apnea (adult) (pediatric) Status: Acute Assessment and Plan: Night CPAP ordered (3) Pulmonary alveolar hemorrhage: Code(s): R04.89 - Hemorrhage from other sites in respiratory passages Status: Acute Assessment and Plan: See above (4) ARDS (adult respiratory distress syndrome): Code(s): J80 - Acute respiratory distress syndrome Status: Acute Assessment and Plan: See above (5) Sinus bradycardia: Code(s): R00.1 - Bradycardia, unspecified Status: Acute Assessment and Plan: 05/16 Patient had episode of sinus bradycardia which was symptomatic during recovery. Patient was 1 given 1 mg of atropine with quick resolution. Chest x-ray done and the recovery showed no pneumothorax and stable bilateral disease. Patient was given 500 cc mL bolus, EKG reviewed and unremarkable Troponins were negative Echo unremarkable Plan DVT prophylaxis -SCD. Start Lovenox Nutrition -advance diet Code Status - Full Code I spoke to patient in detail and explained him the current working diagnosis and treatment plan. I answered all his questions Incentive spirometry, up in chair Transfer out of ICU today Subjective Date/time seen: 05/18/24 Overnight events reviewed. Afebrile He is feeling better and states his breathing is better. He is down to 6 L nasal cannula this morning. He had wore CPAP and feels the pressure is not high enough compared to what he wears at home Acceptable urine output. He is on clear liquid diet. He has minimal cough and occasional sputum tinged with blood. No shortness of breath this morning no fever no chest pain. All the systems were reviewed and were negative. Other Vitals acceptable Review of Systems Review of Systems: All systems reviewed & are unremarkable except as noted in HPI and below (HPI) Exam Narrative: General: Pt is alert awake and in NAD sitting in chair Lungs/Chest: Patient is obese Trachea central Clear BS B/L with decreased at bases, No crackles or wheezing. No tachypnea or respiratory distress.
[2024-05-18] MEDS: NICOTINE (*PBKC) 14 MG PATCH 1 PATCH TRANSDERM (09:11)
[2024-05-18] MEDS: guaiFENesin 600 MG/DEXTROMETHORPHAN 30 MG SR TAB 12 HR 1 TAB PO ×2 (09:11→20:39)
[2024-05-18] MEDS: ENOXAPARIN 40 MG/0.4 ML SYRINGE SUB-Q (09:11)
--- NOTE | 2024-05-18 09:16 | PM.PNPUL ---
Progress Note: A&P Assessment and Plan (1) Hemoptysis: Code(s): R04.2 - Hemoptysis Status: Acute (2) Hypoxic respiratory failure: Code(s): J96.91 - Respiratory failure, unspecified with hypoxia Status: Acute Assessment and Plan: Diagnostic studies have shown extensive ground-glass opacities with consolidations bilaterally and a decrease in his hemoglobin from 13.5 about 7 months ago down to 10.2, with no leukocytosis on presentation. The patient underwent bronchoscopy with BAL. He had bloody secretions in both lungs. The lungs otherwise appeared without mucosal edema, erythema, or intraluminal masses. BAL from the right middle lobe, performed twice, was hemorrhagic. The patient does not have any other evidence of diffuse alveolar hemorrhage related to autoimmune disease, as urinalysis was unremarkable and kidney function is normal. Tests for underlying autoimmune disease are pending, as is the respiratory panel for viruses. He has been on antibiotics for possible community-acquired pneumonia. BAL cultures are pending. The patient's history in conjunction with the diagnostic studies suggests alveolar hemorrhage related to vaping rather than underlying vasculitis. The patient initially received 1 g of Solu-Medrol. 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 Respiratory status has improved over the last 24 hours. He is currently on lower FiO2 with no further bleeding. He has no signs of infection. Chest X-ray done today showed partial clearing of bilateral infiltrates. Plan: Will continue to monitor the respiratory status. It is okay to transfer the patient to the step-down unit. I have discontinued antibiotics. The patient will receive Solu-Medrol 80 mg today and, depending upon progress, will continue with a likely lower dose of Solu-Medrol; the plan is to taper steroids off over the next 7-10 days. Agree with DVT prophylaxis at this point. (3) Community acquired pneumonia: Code(s): J18.9 - Pneumonia, unspecified organism Status: Acute Subjective Date/time seen: 05/18/24 09:16 Interval history: Patient has no new respiratory symptoms. He stated his breathing is getting better. Currently out of bed in a chair breathing oxygen via nasal cannula at 6 liters/minute. No fever no chills. Review of Systems Review of Systems: All systems reviewed & are unremarkable except as noted in HPI and below (HPI) Exam Narrative: GENERAL APPEARANCE: Well developed, well nourished, alert and cooperative, and appears to be in in mild respiratory distress while on supplemental oxygen SKIN: Inspection of the skin reveals no rashes, ulcerations or petechiae. HEENT: Sclerae anicteric and conjunctivae pink and moist. Extraocular movements were intact and pupils were equal, round, and reactive to light. NECK: Supple. There was no thyroid enlargement, and no tenderness, or masses were felt. CHEST: Normal AP diameter and normal contour without any kyphoscoliosis. LUNGS: Essentially clear breath sounds bilaterally no wheezing, no crackles CARDIAC: There was a regular rate and rhythm without any murmurs, gallops, rubs. ABDOMEN: Soft and nontender with normal bowel sounds. There was no organomegaly. LYMPH NODES: No lymphadenopathy was appreciated in the neck. EXTREMITIES: No cyanosis, clubbing no pedal edema NEUROLOGIC: Alert and oriented x 3. Normal affect. Objective Data Vital Signs Vital Signs: Vital Signs - 24 hr 05/17/24 10:10 05/17/24 10:00 05/17/24 10:00 Temperature Pulse Rate 91 90 90 Respiratory Rate 20 15 Blood Pressure 136/76 Pulse Oximetry 95 94 Oxygen Delivery High Flow Therapy with Na Oxygen Flow Rate 45 Fraction of Inspired Oxygen 50 05/17/24 12:00 05/17/24 12:00 05/17/24 12:00 Temperature 37.2 C Pulse Rate 89 92 Respiratory Rate 14 Blood Pressure 127/74 Pulse Oximetry 96 93 Oxygen Delivery High Flow The
[2024-05-18] MEDS: methylPREDNISolone SOD SUCC 125 MG VIAL 80 MG IV PUSH (10:20)
[2024-05-18 12:20] LABS: Glucose Point of Care 116 mg/dl (65-105)
[2024-05-18 15:28] LABS: Pneumococcal Antigen Urine NOT DETECTED
--- NOTE | 2024-05-18 16:46 | PM.IMPN ---
Progress Note: A&P Assessment and Plan (1) Hypoxic respiratory failure: Code(s): J96.91 - Respiratory failure, unspecified with hypoxia Status: Acute Assessment and Plan: Patient initally sen on 05/13 for cough and hemoptysis. He has a hx of hemoptysis with PNA. CXR showing RUL and RML PNA. Patient discharged home on Azithro and Augmentin. He returned to the ED on 05/14 for worsening symptoms. CXR 05/14 showing extensive hazy bibasilar airspace disease/consolidation, right worse than left. WBC was normal and patient afebrile. COVID, RSV and influenza PCR negative. CRP 6.2. ESR 97. PCT 0.1. Started on Rocephin and Doxycycline. Solu-Medrol given. CTA chest negative for PE but extensive groundglass opacities and more dense consolidation throughout both lungs which could represent moderate pulmonary edema or pneumonia. Pulmonary consulted and patient underwent bronchoscopy which confirmed diffuse alveolar hemorrhage UA negative for any sign hematuria suggesting against pulmonary renal syndrome. Consider bacterial PNA, vaping induced lung injury, autoimmune process, ARDS leading to diffuse alveolar hemorrhage, hypersensitivity pneumonitis. Most likely diagnosis is BERRY - vaping associated lung injury. Has hx of PNA so consider IgA deficiency. HIV negative. ANCA negative. UDS negative. MRSA nasal swab negative. Expanded viral panel has been ordered and pending Urine pneumococcal antigen Negative. Mycoplasma IgM and urine Legionella antigen ordered and pending. DEMIAN, anti GBM antibody pending BCx NGTD. Sputum 05/14 negative. He was on empiric azithromycin and Rocephin but abx stopped today. He was on Vapotherm at 55% FiO2 and 45 L but weaned down. He wears CPAP at night which was continued He was on Solu-Medrol but now stopped Wean O2 as tolerated. Appreciate rn clinical research and pulmonary input (2) ULISES (obstructive sleep apnea): Code(s): G47.33 - Obstructive sleep apnea (adult) (pediatric) Status: Acute Assessment and Plan: Night CPAP ordered (3) Pulmonary alveolar hemorrhage: Code(s): R04.89 - Hemorrhage from other sites in respiratory passages Status: Acute Assessment and Plan: As above (4) ARDS (adult respiratory distress syndrome): Code(s): J80 - Acute respiratory distress syndrome Status: Acute Assessment and Plan: As above (5) Sinus bradycardia: Code(s): R00.1 - Bradycardia, unspecified Status: Acute Assessment and Plan: 05/16 Patient had episode of sinus bradycardia which was symptomatic during recovery. Patient was given 1 mg of atropine with quick resolution. Chest x-ray done and the recovery showed no pneumothorax and stable bilateral disease. Patient was given 500 cc mL bolus EKG reviewed and unremarkable Troponins were negative Echo was unremarkable with normal systolic and diastolic function. 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 Plan DVT prophylaxis -SCD. Code Status - Full Code Subjective Date/time seen: 05/18/24 16:46 Interval history: 43yo male with obesity and who smokes and vapes here for worsening PNA. SOB better. Cough improved. Eating well. Walking to the bathroom with minimal NICOLE. Exam Narrative: AF 98.3 138/76 67 15 97% HFNC Gen - NARD sitting up in chair Chest - CTA bilaterally, nml RR CV - RRR S1/S2. Tele showing no si
[2024-05-18 18:19] LABS: Mycoplasma IgM Antibody Titer 129 U/mL
[2024-05-18 20:27] LABS: Glucose Point of Care 128 mg/dl (65-105)
[2024-05-18 22:27] LABS: Legionella pneumophila Ag Ur NOT DETECTED
[2024-05-18 23:53] LABS: Glucose Point of Care 109 mg/dl (65-105)
[2024-05-19] VITALS (27 sets, daily range): BP systolic 116–144; BP diastolic 55–80; PULSE 58–80; RESP 10–24; TEMP 36.4–37.5; O2SAT 92–98
[2024-05-19] MEDS: IPRATROPIUM 0.5 MG/ALBUTEROL SULFATE 2.5 MG AMPUL.NEB 3 ML INHALATION ×4 (02:22→19:52)
[2024-05-19 04:18] LABS: Hematocrit 29.3 % (42.0-52.0); Hemoglobin 9.3 g/dL (14.0-18.0); Mean Corpuscular HGB Conc 31.7 g/dl (32-36); Mean Corpuscular Hemoglobin 28.4 pg (26-34); Mean Corpuscular Volume 89.6 fl (80-100); Mean Platelet Volume 9.6 fl (7.4-10.4); Platelet Count Result 240 k/mm3 (150-375); Red Blood Count 3.27 M/mm3 (4.6-6.20); Red Cell Distribution Width 12.8 % (11.5-14.5); White Blood Count 12.3 K/mm3 (4.5-10.0)
[2024-05-19 04:32] LABS: Alanine Aminotransferase 50 U/L (6-50); Albumin Level 3.7 g/dL (3.5-5.1); Alkaline Phosphatase 62 U/L (38-126); Anion Gap 6 mmol/L (4-12); Aspartate Amino Transferase 32 U/L (17-59); Bilirubin,Total 1.6 mg/dL (0.2-1.3); Blood Urea Nitrogen 22 mg/dL (9-20); Calcium 8.3 mg/dL (8.4-10.2); Carbon Dioxide 34 mmol/L (22-30); Chloride 101 mmol/L (98-107); Estimated CRCL calculation 176 ml/min; Estimated Glomerular Filt Rate > 60; Glucose 103 mg/dL (65-110); Magnesium 2.5 mg/dL (1.6-2.3); Phosphorus 3.9 mg/dL (2.5-4.5); Potassium 3.7 mmol/L (3.4-5.0); Sodium 141 mmol/L (137-145)
[2024-05-19 04:40] LABS: Immunoglobulin A 238 mg/dL (70-400); Immunoglobulin G 1183 mg/dL (700-1600); Immunoglobulin M 30 mg/dL (40-230)
[2024-05-19] MEDS: ENOXAPARIN 40 MG/0.4 ML SYRINGE SUB-Q (08:24)
[2024-05-19] MEDS: NICOTINE (*PBKC) 14 MG PATCH 1 PATCH TRANSDERM (08:24)
[2024-05-19] MEDS: guaiFENesin 600 MG/DEXTROMETHORPHAN 30 MG SR TAB 12 HR 1 TAB PO ×2 (08:24→21:26)
--- NOTE | 2024-05-19 08:31 | PC.NURSE ---
Dr. Hester at bedside
--- NOTE | 2024-05-19 09:12 | PM.PNPUL ---
Progress Note: A&P Assessment and Plan (1) Hemoptysis: Code(s): R04.2 - Hemoptysis Status: Acute (2) Hypoxic respiratory failure: Code(s): J96.91 - Respiratory failure, unspecified with hypoxia Status: Acute Assessment and Plan: Diagnostic studies have shown extensive ground-glass opacities with consolidations bilaterally and a decrease in his hemoglobin from 13.5 about 7 months ago down to 10.2, with no leukocytosis on presentation. The patient underwent bronchoscopy with BAL. He had bloody secretions in both lungs. The lungs otherwise appeared without mucosal edema, erythema, or intraluminal masses. BAL from the right middle lobe, performed twice, was hemorrhagic. The patient does not have any other evidence of diffuse alveolar hemorrhage related to autoimmune disease, as urinalysis was unremarkable and kidney function is normal. Tests for underlying autoimmune disease are pending, as is the respiratory panel for viruses. He has been on antibiotics for possible community-acquired pneumonia. BAL cultures are pending. The patient's history in conjunction with the diagnostic studies suggests alveolar hemorrhage related to vaping rather than underlying vasculitis. The patient initially received 1 g of Solu-Medrol. He then received Solu-Medrol 80 mg daily for a couple of days. Respiratory status has improved over the last 48 hours. Today, he can maintain O2 saturation in the range of 88% to 92% while sitting in a chair. O2 saturation dropped when he was moved from bed to chair. A chest X-ray done yesterday showed partial clearing of bilateral infiltrates. There is evidence of definite clinical improvement, with the chest X-ray done yesterday showing partial improvement, and over the last 24 hours, there has been further gas exchange improvement. On physical exam, he has no new findings. Plan: We will continue to monitor the respiratory status. Given the improvement over the last 24 hours, no more IV steroids are planned. He will have a repeat chest X-ray in the morning. We anticipate discharge home in 1-2 days. The patient indicated that he would like to stay a couple more days until he fully improves, as he does not want to start treatment with home oxygen. Continue to use BiPAP support and oxygen at night. (3) Community acquired pneumonia: Code(s): J18.9 - Pneumonia, unspecified organism Status: Acute Subjective Date/time seen: 05/19/24 09:12 Interval history: Patient has no new respiratory symptoms. Minimal coughing with no hemoptysis over the last 24 hours. Able to maintain O2 sat near the 90% range at rest with a deep inspirations. Oxygen dropped when moved in room. Review of Systems Review of Systems: All systems reviewed & are unremarkable except as noted in HPI and below (HPI) Exam Narrative: GENERAL APPEARANCE: Well developed, well nourished, alert and cooperative, and appears to be in in mild respiratory distress while on supplemental oxygen SKIN: Inspection of the skin reveals no rashes, ulcerations or petechiae. HEENT: Sclerae anicteric and conjunctivae pink and moist. Extraocular movements were intact and pupils were equal, round, and reactive to light. NECK: Supple. There was no thyroid enlargement, and no tenderness, or masses were felt. CHEST: Normal AP diameter and normal contour without any kyphoscoliosis. LUNGS: Essentially clear breath sounds bilaterally no wheezing, no crackles CARDIAC: There was a regular rate and rhythm without any murmurs, gallops, rubs. ABDOMEN: Soft and nontender with normal bowel sounds. There was no organomegaly. LYMPH NODES: No lymphadenopathy was appreciated in the neck. EXTREMITIES: No cyanosis, clubbing no pedal edema NEUROLOGIC: Alert and oriented x 3. Normal affect. Objective Data Vital Signs Vital Signs: Vital Signs - 24 hr 05/18/24 10:00 05/18/24 10:05/18/24 12:00 Temperature 36.9 C Pulse Rate 70 98 88 Respiratory Rate 23 H 14
--- NOTE | 2024-05-19 11:05 | PC.NURSE ---
This patient, Bari Reed, was transferred to [facility] via wheelchair without issue on 05/19/24 at 1100. Personal belongings sent with patient. Report given to Frantz Kat. Appropriate documentation sent with patient.
--- NOTE | 2024-05-19 11:47 | PM.IMPN ---
Progress Note: A&P Assessment and Plan (1) Hypoxic respiratory failure: Code(s): J96.91 - Respiratory failure, unspecified with hypoxia Status: Acute Assessment and Plan: Patient initally sen on 05/13 for cough and hemoptysis. He has a hx of hemoptysis with PNA. CXR showing RUL and RML PNA. Patient discharged home on Azithro and Augmentin. He returned to the ED on 05/14 for worsening symptoms. CXR 05/14 showing extensive hazy bibasilar airspace disease/consolidation, right worse than left. WBC was normal and patient afebrile. COVID, RSV and influenza PCR negative. CRP 6.2. ESR 97. PCT 0.1. Started on Rocephin and Doxycycline. Solu-Medrol given. CTA chest negative for PE but extensive groundglass opacities and more dense consolidation throughout both lungs which could represent moderate pulmonary edema or pneumonia. Pulmonary consulted and patient underwent bronchoscopy which confirmed diffuse alveolar hemorrhage UA negative for any sign hematuria suggesting against pulmonary renal syndrome. Consider bacterial PNA, vaping induced lung injury, autoimmune process, ARDS leading to diffuse alveolar hemorrhage, hypersensitivity pneumonitis. Most likely diagnosis is BERRY - vaping associated lung injury. Has hx of PNA so consider IgA deficiency. HIV negative. ANCA negative. UDS negative. MRSA nasal swab negative. Expanded viral panel has been ordered and pending Urine pneumococcal antigen, Mycoplasma IgM negative. Urine Legionella antigen pending. DEMIAN, anti GBM antibody pending BCx 05/14 negative. Sputum /10 negative. He was on empiric azithromycin and Rocephin but abx stopped yesterday He was on Vapotherm at 55% FiO2 and 45 L but weaned down to rrom air. He wears CPAP at night which was continued He was on Solu-Medrol but now stopped Appreciate sweat box attendant and pulmonary input Still having mild hypoxia with activity. Home O2 evaluation for possible home tomorrow (2) ULISES (obstructive sleep apnea): Code(s): G47.33 - Obstructive sleep apnea (adult) (pediatric) Status: Acute Assessment and Plan: Night CPAP ordered (3) Pulmonary alveolar hemorrhage: Code(s): R04.89 - Hemorrhage from other sites in respiratory passages Status: Acute Assessment and Plan: As above (4) ARDS (adult respiratory distress syndrome): Code(s): J80 - Acute respiratory distress syndrome Status: Acute Assessment and Plan: As above (5) Sinus bradycardia: Code(s): R00.1 - Bradycardia, unspecified Status: Acute Assessment and Plan: 05/16 Patient had episode of sinus bradycardia which was symptomatic during recovery. Patient was given 1 mg of atropine with quick resolution. Chest x-ray done and the recovery showed no pneumothorax and stable bilateral disease. Patient was given 500 cc mL bolus EKG reviewed and unremarkable Troponins were negative Echo was unremarkable with normal systolic and diastolic function. 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 Plan DVT prophylaxis - Lovenox Code Status - Full Code Subjective Date/time seen: 05/19/24 11:47 Interval history: 43yo male with obesity and who smokes and vapes here for worsening PNA. Weaned to room air but still with NICOLE and mild hypoxia when ambulating. No issues overnight. No CP. No n/v. Occasional cough productive of dark red sputum. Burning in
[2024-05-19 13:33] LABS: Adenovirus DNA Not Detected (Not Detected); Chlamydophila pneumoniae Not Detected (Not Detected); Coronavirus 229E Not Detected (Not Detected); Coronavirus HKU1 Not Detected (Not Detected); Coronavirus NL63 Not Detected (Not Detected); Coronavirus OC43 Not Detected (Not Detected); Human Metapneumovirus Not Detected (Not Detected); Human Parainfluenza Virus 1 Not Detected (Not Detected); Human Parainfluenza Virus 2 Not Detected (Not Detected); Human Parainfluenza Virus 3 Not Detected (Not Detected); Human Parainfluenza Virus 4 Not Detected (Not Detected); Human RSV B Not Detected (Not Detected); Influenza A Not Detected (Not Detected); Influenza B Not Detected (Not Detected); Mycoplasma pneumoniae Not Detected (Not Detected); Rhinovirus/Enterovirus Not Detected (Not Detected)
[2024-05-20] VITALS (17 sets, daily range): BP systolic 146–156; BP diastolic 71–73; PULSE 62–105; RESP 18–23; TEMP 36.4–36.5; O2SAT 87–93
[2024-05-20] MEDS: IPRATROPIUM 0.5 MG/ALBUTEROL SULFATE 2.5 MG AMPUL.NEB 3 ML INHALATION ×2 (02:19→07:54)
[2024-05-20 05:10] LABS: Hematocrit 31.7 % (42.0-52.0); Mean Corpuscular HGB Conc 31.5 g/dl (32-36); Mean Corpuscular Hemoglobin 28.1 pg (26-34); Mean Platelet Volume 9.8 fl (7.4-10.4); Platelet Count Result 300 k/mm3 (150-375); Red Blood Count 3.56 M/mm3 (4.6-6.20); Red Cell Distribution Width 12.9 % (11.5-14.5); White Blood Count 9.6 K/mm3 (4.5-10.0)
[2024-05-20 05:30] LABS: Albumin Level 3.8 g/dL (3.5-5.1); Chloride 101 mmol/L (98-107); Potassium 3.2 mmol/L (3.4-5.0); Sodium 139 mmol/L (137-145)
[2024-05-20 05:52] LABS: Alanine Aminotransferase 43 U/L (6-50); Alkaline Phosphatase 69 U/L (38-126); Anion Gap 8 mmol/L (4-12); Aspartate Amino Transferase 27 U/L (17-59); Bilirubin,Total 1.4 mg/dL (0.2-1.3); Blood Urea Nitrogen 18 mg/dL (9-20); Calcium 8.2 mg/dL (8.4-10.2); Carbon Dioxide 30 mmol/L (22-30); Estimated CRCL calculation 176 ml/min; Estimated Glomerular Filt Rate > 60; Glucose 88 mg/dL (65-110); Magnesium 2.2 mg/dL (1.6-2.3); Phosphorus 4.1 mg/dL (2.5-4.5)
[2024-05-20] MEDS: POTASSIUM CHLORIDE 20 MEQ ER TABLET 40 MEQ PO (09:44)
[2024-05-20] MEDS: guaiFENesin 600 MG/DEXTROMETHORPHAN 30 MG SR TAB 12 HR 1 TAB PO (09:44)
[2024-05-20] MEDS: ENOXAPARIN 40 MG/0.4 ML SYRINGE SUB-Q (09:44)
[2024-05-20] MEDS: NICOTINE (*PBKC) 14 MG PATCH 1 PATCH TRANSDERM (09:44)
--- NOTE | 2024-05-20 10:01 | HOMEO2EVAL ---
Evaluation was performed at [facility] Home Oxygen Evaluation RC: Home Oxygen (O2) Evaluation Start: 05/20/24 08:00 Freq: ONCE Status: Active Protocol: RPE Activity Type Activity Date Activity User E-sign Co-sign Detail Recorded Client Recorded Date Recorded By Document 05/20/24 09:15 DJO [email or web address] 05/20/24 10:00 DJO Document 05/20/24 09:20 [email or web address] [email or web address] 05/20/24 10:00 DJO Document 05/20/24 09:25 [email or web address] [email or web address] 05/20/24 10:00 DJO Document 05/20/24 09:30 [email or web address] [email or web address] 05/20/24 10:00 DJO Document 05/20/24 09:45 [email or web address] [email or web address] 05/20/24 10:00 DJO 05/20/24 05/20/24 05/20/24 09:15 09:20 09:25 Home O2 Evaluation [Oxygen] -Test Phase Resting Exercise Exercise -Oxygen Delivery Room Air Room Air Nasal Cannula -Oxygen Flow Rate (L/min) 1 [Pulse Oximetry] -Pulse Oximetry (90-100 %) 92 87 L 88 L [Pulse Rate] -Pulse Rate (60-100 beats/min) 84 102 H 103 H [Evaluation] -Activity Tolerance [Exercise] -Ambulation Distance (feet) -Ambulation Distance (meters) [Charges] -Evaluation Charges O2 Evaluation by Pulmonary 05/20/24 05/20/24 09:30 09:45 Home O2 Evaluation [Oxygen] -Test Phase Exercise Resting -Oxygen Delivery Nasal Cannula Room Air -Oxygen Flow Rate (L/min) 2 [Pulse Oximetry] -Pulse Oximetry (90-100 %) 91 92 [Pulse Rate] -Pulse Rate (60-100 beats/min) 105 H 87 [Evaluation] -Activity Tolerance Good [Exercise] -Ambulation Distance (feet) 500 -Ambulation Distance (meters) 152.39 [Charges] -Evaluation Charges
--- NOTE | 2024-05-20 11:37 | PM.PNPUL ---
Progress Note: A&P Assessment and Plan (1) Hypoxic respiratory failure: Code(s): J96.91 - Respiratory failure, unspecified with hypoxia Status: Acute Assessment and Plan: Diagnostic studies have shown extensive ground-glass opacities with consolidations bilaterally and a decrease in his hemoglobin from 13.5 about 7 months ago down to 10.2, with no leukocytosis on presentation. The patient underwent bronchoscopy with BAL. He had bloody secretions in both lungs. The lungs otherwise appeared without mucosal edema, erythema, or intraluminal masses. BAL from the right middle lobe, performed twice, was hemorrhagic. The patient does not have any other evidence of diffuse alveolar hemorrhage related to autoimmune disease, as urinalysis was unremarkable and kidney function is normal. Tests for underlying autoimmune disease are pending, as is the respiratory panel for viruses. He has been on antibiotics for possible community-acquired pneumonia. BAL cultures are pending. The patient's history in conjunction with the diagnostic studies suggests alveolar hemorrhage related to vaping rather than underlying vasculitis. The patient initially received 1 g of Solu-Medrol. He then received Solu-Medrol 80 mg daily for a couple of days. Respiratory status has improved over the last 48 hours. Today, he can maintain O2 saturation in the range of 88% to 92% while sitting in a chair. O2 saturation dropped when he was moved from bed to chair. A chest X-ray done yesterday showed partial clearing of bilateral infiltrates. There is evidence of definite clinical improvement, with the chest X-ray done yesterday showing partial improvement, and over the last 24 hours, there has been further gas exchange improvement. On physical exam, he has no new findings. 05/19/24: Plan: We will continue to monitor the respiratory status. Given the improvement over the last 24 hours, no more IV steroids are planned. He will have a repeat chest X-ray in the morning. We anticipate discharge home in 1-2 days. The patient indicated that he would like to stay a couple more days until he fully improves, as he does not want to start treatment with home oxygen. Continue to use BiPAP support and oxygen at night. 05/20/24: overall the patient tells me he is breathing normally at rest. He does have dyspnea on exertion. He continues to cough and has dark red blood mixed with mucus. He denies any chest pain. Room air saturations are 95%. Hemoglobin 9.6, creatinine 0.8. Chest x-ray today shows mild they basilar interstitial infiltrates that has improved since 05/14/2024. Home O2 assessment demonstrated no oxygen at rest and 2 L with activity. Vaping cessation counseling was provided and the patient tells me is 100% sure that he will never vape again. I reinforced this. Plan: From a pulmonary perspective patient is ready to be discharged home on these pulmonary medicines: No oxygen at rest and oxygen 2 L nasal cannula with activity. Continues patient's home CPAP machine. Follow-up in the Pulmonary Clinic in 4 weeks. I gave him our business card and informed our hydrometallurgical engineer. Will need outpatient PFTs. Discussed with Dr. Rain, will sign off. Call with questions. (2) ULISES (obstructive sleep apnea): Code(s): G47.33 - Obstructive sleep apnea (adult) (pediatric) Status: Acute Assessment and Plan: Patient tells me that approximately 5 years ago he was fatigued in his PCP ordered us sleep study performed in [place]. He told me a was severe obstructive sleep apnea and he is set up with the machine through [facility] that had to numbers the 1st number was 6 or 8 and the 2nd number was 18. It took him a few weeks to get used to this. He could not tolerate a fullface mask and is now currently using nasal pillows any uses a 6 to 7 times a week. He does not use any oxygen. He buys his own supplies and has not had a download checked to document good compliance. w
--- NOTE | 2024-05-20 12:06 | PM.DS ---
DS: Admitting Diagnosis Discharge Date 05/20/24 Admitting Diagnosis Shortness of breath, hemoptysis DS: Discharge Diagnosis Discharge Diagnosis (1) Hypoxic respiratory failure: Code(s): J96.91 - Respiratory failure, unspecified with hypoxia Status: Acute (2) ULISES (obstructive sleep apnea): Code(s): G47.33 - Obstructive sleep apnea (adult) (pediatric) Status: Acute (3) Pulmonary alveolar hemorrhage: Code(s): R04.89 - Hemorrhage from other sites in respiratory passages Status: Acute (4) ARDS (adult respiratory distress syndrome): Code(s): J80 - Acute respiratory distress syndrome Status: Acute (5) Sinus bradycardia: Code(s): R00.1 - Bradycardia, unspecified Status: Acute (6) E-cigarette or vaping product use associated lung injury (EVALI): Code(s): U07.0 - Vaping-related disorder Status: Acute (7) Hemoptysis: Code(s): R04.2 - Hemoptysis Status: Acute (8) Hypertension: Code(s): I10 - Essential (primary) hypertension Status: Chronic DS: Summary Hospital Course Reason for hospitalization: 43yo male with obesity and who smokes and vapes here for shortness of breath, hemoptysis. Please see H&P for details. Hospital Course: Patient was initially seen on 05/13 for cough and hemoptysis. He has a hx of hemoptysis with PNA. CXR showed RUL and RML PNA. Patient discharged home on Azithromycin and Augmentin. He returned to the ED on 05/14 for worsening symptoms. CXR 05/14 showing extensive hazy bibasilar airspace disease/consolidation, right worse than left. WBC was normal and patient afebrile. COVID, RSV and influenza PCR negative. CRP 6.2. ESR 97. PCT 0.1. Started on Rocephin and Doxycycline. Solu-Medrol given. CTA chest negative for PE but extensive groundglass opacities and more dense consolidation throughout both lungs which could represent moderate pulmonary edema or pneumonia. Pulmonary consulted and patient underwent bronchoscopy which confirmed diffuse alveolar hemorrhage. UA negative for any sign hematuria suggesting against pulmonary renal syndrome. Consider bacterial PNA, vaping induced lung injury, autoimmune process, ARDS leading to diffuse alveolar hemorrhage, hypersensitivity pneumonitis. Most likely diagnosis is vaping associated lung injury. HIV negative. ANCA negative. UDS negative. MRSA nasal swab negative. Expanded respiratory panel was negative. Urine pneumococcal antigen, Mycoplasma IgM and Urine Legionella antigen negative. DEMIAN, anti GBM antibody pending. BCx 9/10 negative. Sputum 9/10 negative. He was on empiric antibiotics but abx stopped. He was requiring Vapotherm but he had clinical improvement and ultimately weaned to room air. He was on Solu-Medrol but this was also stopped. We did continue his CPAP at night. CXR at discharge showing stable mild bilateral ground glass pulmonary disease. On 05/16, the patient had an episode of sinus bradycardia which was symptomatic during recovery. Patient was given 1 mg of atropine with quick resolution. Chest x-ray done in the recovery showed no pneumothorax and stable bilateral disease. Patient was given 500mL fluid bolus. EKG reviewed and unremarkable. Troponins were negative. Echo was unremarkable with normal systolic and diastolic function. He was educated about the benefits of smoking/vaping cessation. He had a home Oxygen evaluation showing he needed 2L with activity. He overall did well and was able be discharged home on 05/20/2024. Status at Discharge Cognitive/behavioral status at discharge: Stable Time Spent with Patient Time attestation: Total time spent providing and/or coordinating discharge services: 34 minutes Time spent: Greater than 30 minutes Specific discharge activities: Discussed with patient, staff and pulmonology Exam Narrative: AF 97.7 146/73 84 20 92% RA Gen - NARD sitting up in chair Chest - CTA bilaterally, nml RR CV - RRR S1/S2.
--- NOTE | 2024-05-20 12:49 | PCRCNOTE ---
HOME O2 EVAL COMPLETE, 2L WITH ACTIVITY. SET UP WITH HOME CARE EQUIPMENT PHONE NUMBER [phone]
[2024-05-24 14:43] LABS: Anti Glomerular Basement Memb <1.0 AI
== END 2024-05-20 12:45 | disposition home or self-care (01) | DRG 189 ==
LOC: ANHED 05:12 → ANH2MED 05:41 → ANHIMU 05-15 15:30 → ANHICU 05-16 13:41 → ANHIMU 05-19 11:03
PROVIDERS: Internal Medicine; Internal Medicine Pulmonary Disease; Nurse Practitioner Family; Admitting Provider Internal Medicine; Emergency Provider Student in an Organized Health Care Education/Training Program; PCP Family Medicine Sports Medicine; Visit Provider Internal Medicine
PROC: 0BJ08ZZ Inspection of Tracheobronchial Tree, Via Natural or Artificial Opening Endoscopic (ICD-10-PCS; CPT 31622; principal; 2024-05-16 12:30)
DX: J80 Acute respiratory distress syndrome (principal); J18.9 Pneumonia, unspecified organism; Z68.42 Body mass index [BMI] 45.0-49.9, adult; R04.89 Hemorrhage from other sites in respiratory passages; U07.0 Vaping-related disorder; G47.33 Obstructive sleep apnea (adult) (pediatric); F17.290 Nicotine dependence, other tobacco product, uncomplicated; I10 Essential (primary) hypertension; E66.01 Morbid (severe) obesity due to excess calories; Z99.89 Dependence on other enabling machines and devices; Z79.82 Long term (current) use of aspirin; Z20.822 Contact with and (suspected) exposure to COVID-19
CPT/HCPCS: 36415; 36600; 71045; 71046; 71275; 80053; 80307; 81003; 82784; 82805; 82948; 83520; 83735; 83880; 84100; 84145; 84484; 85025; 85027; 85380; 85610; 85652; 85730; 85999; 86036; 86140; 86703; 86738; 87015; 87040; 87070; 87081; 87102; 87116; 87205; 87206; 87281; 87449; 87633; 87637; 87641; 87899; 88108; 88305; 93005; 93306; 94002; 94003; 94618; 94640; 96365; 96367; 99285; A9270; G0378; G0432; J0171; J0330; J0456; J0461; J0696; J1650; J2405; J2704; J2919; J7030; J7040; J7050; J7120; Q9967

== ENCOUNTER 2024-05-28 09:58 | Outpatient (CLI) | payer OTHER, SELFPAY ==
--- NOTE | ~2024-05-28 | XR_ITS ---
XR chest 2V Ordering provider: Ha Hester MD History: 43 years Male with . COUGH, HX VAPING/SMOKING, DISCHARGED X 7 DAYS AGO . Comparison: May 20, 2024 FINDINGS: MEDIASTINUM: The cardiac silhouette is not enlarged. Congestive fiorella. LUNGS: No effusions or pneumothorax. Opacification in the right mid and lower zone and left lower zon e is seen suggestive of atelectasis. OTHER: No free air under the diaphragm. IMPRESSION: Bilateral pneumonia. Reviewed, dictated and finalized at location A. IMPRESSION: Bilateral pneumonia.
== END 2024-05-28 09:59 | disposition home or self-care (01) ==
PROVIDERS: PCP Family Medicine; Visit Provider Internal Medicine Pulmonary Disease
DX: U07.0 Vaping-related disorder (principal); J18.9 Pneumonia, unspecified organism
CPT/HCPCS: 71046

== ENCOUNTER 2024-06-10 07:41 | Outpatient (CLI) | payer OTHER, SELFPAY ==
--- NOTE | ~2024-06-10 | XR_ITS ---
XR chest 2V 06/10/2024 07:53 Indication: AP and related disorder Procedure: 2 view chest Comparison: Comparison to multiple prior studies sequentially, with oldest reviewed study dated 05/17. Findings: There is improving patchy bilateral pneumonia. No pleural effusion. Heart size normal. No p neumothorax. No acute osseous abnormality. Impression: 1: Improving patchy bilateral pneumonia. Reviewed, dictated and finalized at location B. Impression: 1: Improving patchy bilateral pneumonia.
[2024-06-10 08:20] LABS: Basophils Percent Auto 0.5 % (0.2-1.2); Eosinophils Absolute Auto 0.2 K/mm3 (0-0.3); Eosinophils Percent Auto 2.9 % (0-4.4); Hematocrit 33.3 % (42.0-52.0); Hemoglobin 10.4 g/dL (14.0-18.0); Immature Granulocyte Absolute 0.03 K/mm3 (0.00-0.031); Immature Granulocyte Percent A 0.4 % (0-0.5); Lymphocytes Absolute Auto 2.51 K/mm3 (0.9-3.2); Lymphocytes Percent Auto 31.3 % (18.3-44.2); Mean Corpuscular HGB Conc 31.2 g/dl (32-36); Mean Corpuscular Hemoglobin 27.5 pg (26-34); Mean Corpuscular Volume 88.1 fl (80-100); Mean Platelet Volume 9.7 fl (7.4-10.4); Monocytes Absolute Auto 0.9 K/mm3 (0.1-0.6); Monocytes Percent Auto 11.5 % (2.6-8.5); Neutrophils Absolute Auto 4.3 K/mm3 (1.3-6.7); Neutrophils Percent Auto 53.4 % (45.5-73.1); Platelet Count Result 209 k/mm3 (150-375); Red Blood Count 3.78 M/mm3 (4.6-6.20); Red Cell Distribution Width 14.4 % (11.5-14.5)
[2024-06-10 08:36] LABS: CRP < 0.5 mg/dL (<1.0)
== END 2024-06-10 07:42 | disposition home or self-care (01) ==
PROVIDERS: PCP Family Medicine; Visit Provider Internal Medicine Pulmonary Disease
DX: U07.0 Vaping-related disorder (principal); J18.9 Pneumonia, unspecified organism
CPT/HCPCS: 36415; 71046; 85025; 86140

== ENCOUNTER 2024-06-24 13:53 | Outpatient (CLI) | payer OTHER, SELFPAY ==
--- NOTE | ~2024-06-24 | CT_ITS ---
EXAMINATION:CT diagnostic chest wo con DATE: 06/24/2024 14:18 INDICATION: Vaping-related disorder. TECHNIQUE: Computed tomography (CT) of the chest was performed without intravenous contrast. Automate d exposure control and iterative reconstruction technique were employed. The dose-length product (DLP ) was 991.92 mGy-cm. COMPARISON: Chest CT 05/15/2024, 10/17/2022 FINDINGS: There are patchy groundglass opacities and small airspace opacities throughout all lobes. T here is a pneumatocele in left upper lobe. No pleural effusion. The heart size is normal. No pericard ial effusion. There is bilateral gynecomastia. There is a 1.6 cm cyst in left kidney. There is mild t horacic spondylosis. IMPRESSION: 1. Diffuse lung disease with interval improvement, consistent with pneumonia versus diffuse alveolar damage. Reviewed, dictated and finalized at location A. IMPRESSION: 1. Diffuse lung disease with interval improvement, consistent with pneumonia ve rsus diffuse alveolar damage.
== END 2024-06-24 13:54 | disposition home or self-care (01) ==
PROVIDERS: PCP Family Medicine; Visit Provider Internal Medicine Pulmonary Disease
DX: J18.9 Pneumonia, unspecified organism (principal); U07.0 Vaping-related disorder
CPT/HCPCS: 71250